=== PATIENT | male | born 1980 | race American Indian/Alaskan Native ===

== ENCOUNTER 2017-09-15 05:45 | Inpatient (IN) | payer OTHER ==
[2017-09-15] MEDS ORDERED: Sodium Chloride 0.9% 1,000 ML IV STA (06:21)
--- NOTE | 2017-09-15 06:30 | ED PDOC ---
HPI: Abdomen Time Seen by Provider: 09/15/17 05:49 Chief Complaint (Nursing): Abdominal Pain Chief Complaint (Provider): Abdominal Pain History Per: Patient History/Exam Limitations: no limitations Onset/Duration Of Symptoms: Days (x 1) Current Symptoms Are (Timing): Still Present Additional Complaint(s): Km is a 37 y/o male with no past medical history who presents to the ED complaining of right lower quadrant pain that started 24 hours ago. Patient states the pain was initially periumbilical and then travelled down to the RLQ. He has had 5 episodes of vomiting and says a few were red but he is not sure if it was blood. He reports that he has felt feverish at home and has had normal bowel movements. He has not taken anything for the pain. PMD: None Provided Past Medical History Reviewed: Historical Data, Nursing Documentation, Vital Signs Vital Signs: Last Vital Signs Temp 97.6 F 09/15/17 06:06 Pulse 88 09/15/17 06:06 Resp 17 09/15/17 06:06 BP 128/84 09/15/17 06:06 Pulse Ox 99 09/15/17 06:34 - Medical History PMH: No Chronic Diseases - Surgical History Surgical History: No Surg Hx - Family History Family History: States: Unknown Family Hx - Allergies Allergies/Adverse Reactions: Allergies Allergy/AdvReac Type Severity Reaction Status Date / Time No Known Allergies Allergy Verified 09/15/17 06:08 Review of Systems ROS Statement: Except As Marked, All Systems Reviewed And Found Negative Constitutional: Positive for: Fever Gastrointestinal: Positive for: Nausea, Vomiting (x 5), Abdominal Pain (RLQ). Negative for: Diarrhea, Constipation Physical Exam - Reviewed Nursing Documentation Reviewed: Yes Vital Signs Reviewed: Yes - Physical Exam Appears: Positive for: Non-toxic, No Acute Distress Head Exam: Positive for: ATRAUMATIC, NORMAL INSPECTION, NORMOCEPHALIC Skin: Positive for: Normal Color, Warm, Dry Eye Exam: Positive for: EOMI, Normal appearance, PERRL ENT: Positive for: Normal ENT Inspection Neck: Positive for: Normal, Painless ROM, Supple Cardiovascular/Chest: Positive for: Regular Rate, Rhythm. Negative for: Murmur Respiratory: Positive for: Normal Breath Sounds. Negative for: Respiratory Distress Gastrointestinal/Abdominal: Positive for: Tenderness (RLQ to palpitation), Guarding (voluntary) Back: Positive for: Normal Inspection Extremity: Positive for: Normal ROM. Negative for: Pedal Edema, Deformity Neurologic/Psych: Positive for: Alert, Oriented - ECG O2 Sat by Pulse Oximetry: 99 (RA) Pulse Ox Interpretation: Normal Medical Decision Making Medical Decision Making: Time: 6:20 Initial Impression: Appendicitis Initial Plan: --CT Abdomen & Pelvis with IV Contrast --CMP --Lactic Acid --CBC --Toradol --Zofran --Blood Culture --Urinalysis Time: 7:00 --Patient signed out by me to Dr. Rolf Ernandez III, MD pending imaging and lab results. Scribe Attestation: Documented by Wiley Riley, acting as a scribe for Dr. Zach Jama MD Provider Scribe Attestation: All medical record entries made by the Scribe were at my direction and personally dictated by me. I have reviewed the chart and agree that the record accurately reflects my personal performance of the history, physical exam, medical decision making, and the department course for this patient. I have also personally directed, reviewed, and agree with the discharge instructions and disposition. Disposition - Clinical Impression Clinical Impression: Abdominal pain - Patient ED Disposition Is Patient to be Admitted: Transfer of Care - Disposition Disposition: Transfer of Care Disposition Time: 07:00 Condition: STABLE Forms: [facility] (Kosovan) Patient Signed Over To: Rolf Ernandez III Handoff Comments: pending full workup
[2017-09-15 06:50] LABS: BASO % 0.3 % (0.0-2.0); HEMOGLOBIN 14.7 g/dL (12.0-18.0); LYMPH # 0.7 K/uL (1.0-4.3); LYMPH % 5.1 % (20.0-40.0); MEAN CORPUSCULAR HEMOGLOBIN 24.2 pg (27.0-31.0); MEAN CORPUSCULAR HGB CONC 31.8 g/dL (33.0-37.0); MEAN PLATELET VOLUME 7.8 fl (7.2-11.7); MONO # 1.3 K/uL (0.0-0.8); MONO % 9.8 % (0.0-10.0); NEUT # 11.6 K/uL (1.8-7.0); NEUT % 84.8 % (50.0-75.0); NRBC % 0.1 % (0.0-0.0); PLATELET COUNT 182 K/uL (130-400); RBC 6.06 Mil/uL (4.40-5.90); RED CELL DISTRIBUTION WIDTH 15.2 % (11.5-14.5); WHITE BLOOD COUNT 13.7 K/uL (4.8-10.8)
[2017-09-15 06:58] LABS: ALB/GLOB RATIO 1.3 (1.0-2.1); ALBUMIN 4.5 g/dL (3.5-5.0); ALT/SGPT 37 U/L (21-72); AST/SGOT 25 U/L (17-59); BLOOD UREA NITROGEN 17 mg/dl (9-20); CALCIUM 9.3 mg/dL (8.4-10.2); GFR AFRICAN-AMERICAN > 60; GFR NON-AFRICAN AMERICAN > 60
--- NOTE | 2017-09-15 07:14 | ED PDOC ---
- Laboratory Results Result Diagrams: 09/16/17 05:30 09/16/17 05:30 - ECG O2 Sat by Pulse Oximetry: 99 (RA) Medical Decision Making Medical Decision Making: recd 7am endorsement pending CT abd pelv r/o appendicitis Labs reviewed, mildly elevated WBC CT revealed evidence of appendicitis with possible perforation D/w hospitalist, surgery resident and attending surgeon Dr Mccain for consult Zosyn initiated Admit med surg given stable vitals Disposition Counseled Patient/Family Regarding: Studies Performed, Diagnosis, Need For Followup - Clinical Impression Clinical Impression: Abdominal pain, Appendicitis with perforation - POA Present On Arrival: None - Disposition Disposition: Admitted as In-Patient Disposition Time: 09:00 Condition: STABLE
[2017-09-15] MEDS ORDERED: Sodium Chloride 0.9% 50 ML IV ONE (07:28)
[2017-09-15] MEDS ORDERED: Iohexol 300 100 ML IJ ONE (07:28)
[2017-09-15] MEDS ORDERED: Piperacillin/Tazobact 4.5 GM in Sodium Chloride 0.9% 100 ML IVPB STA (09:26)
--- NOTE | 2017-09-15 09:38 | CT ---
PROCEDURE: CT abdomen pelvis dated 09/15/2017 . HISTORY: Right lower quadrant pain abdomen COMPARISON: None. TECHNIQUE: Contiguous axial images of the and pelvis of performed following intravenous injection of approximately 95 cc Omnipaque 300 contrast material. Additional 2 dimensional sagittal and coronal reformats generated. Radiation dose: Total exam DLP = 548.78 mGy-cm. This CT exam was performed using one or more of the following dose reduction techniques: Automated exposure control, adjustment of the mA and/or kV according to patient size, and/or use of iterative reconstruction technique. FINDINGS: LOWER THORAX: Lung bases are clear without focal consolidation or effusion. No evidence of basilar pneumothorax. There is small hiatal hernia. Heart size is borderline/mildly enlarged. LIVER: Liver is enlarged measuring 21 cm in CC dimension. Mild diffuse fatty hepatic infiltration. No obvious hepatic mass collection or calcification. Portal and splenic veins are opacified. GALLBLADDER AND BILE DUCTS: Gallbladder is physiologically distended. No evidence of intraluminal gallbladder calculi. PANCREAS: The pancreas appears grossly unremarkable without masses collections or calcifications. SPLEEN: Spleen exhibits normal size and attenuation pattern without mass collection or calcification. ADRENALS: No adrenal lesions. KIDNEYS AND URETERS: Kidneys demonstrate symmetric nephrograms. No evidence of nephrolithiasis or hydronephrosis. BLADDER: Urinary bladder is physiologically distended. No evidence intraluminal urinary bladder calculi. REPRODUCTIVE: Unremarkable as visualized. APPENDIX: What is felt to represent the appendix is dilated measuring up to nearly 14 mm in greatest dimension and exhibits enhancing thick wall. There is surrounding the infiltration and fluid in the periappendiceal mesentery with mild to moderate amount of fluid in the pelvis. Findings are consistent with acute appendicitis likely ruptured given the additional findings in the mesentery. Fluid also extends superiorly for short distance adjacent to the ascending colon. . This case was discussed with Dr. Ernandez approximately 9:20 a.m. with written down and read back verification. BOWEL: Evaluation of the bowel is somewhat limited due to the lack of oral contrast material. Stomach is incompletely distended which presumably accounts thick-walled appearance. Visualized loops of small bowel exhibit normal contour and caliber. No evidence mechanical small bowel obstruction. . PERITONEUM: As above. No evidence of gross free intraperitoneal air. LYMPH NODES: Unremarkable. No enlarged lymph nodes. VASCULATURE: Unremarkable. No aortic aneurysm. BONES: No fracture or destructive lesion. OTHER FINDINGS: None. IMPRESSION: Findings most consistent with an acute appendicitis possibly ruptured given the moderate amount of adjacent free fluid and fluid extending into the pelvis as well as superiorly along the ascending colon. Findings discussed with Dr. Ernandez as detailed above. Mild hepatomegaly with mild fatty hepatic infiltration.
--- NOTE | 2017-09-15 09:55 | CP.PCM.HP ---
History of Present Illness - History of Present Illness History of Present Illness: 37 yo male with no significant PMH came in complaining of RLQ pain since 2 days ago associated with 5 episodes of vomiting with red material. He had no BM for 3 days and felt febrile, on and off, at home. Present on Admission - Present on Admission Any Indicators Present on Admission: No History of DVT/PE: No History of Uncontrolled Diabetes: No Urinary Catheter: No Decubitus Ulcer Present: No Review of Systems - Review of Systems All systems: reviewed and no additional remarkable complaints except (aside from those mentioned above, 12 point system review were negative by me) Past Patient History - Tetanus Immunizations Tetanus Immunization: Unknown - Past Medical History & Family History Past Medical History?: No Past Family History: Reviewed and not pertinent - Past Social History Smoking Status: Never Smoked Alcohol: None Drugs: Denies - PSYCHIATRIC Hx Substance Use: No Meds Allergies/Adverse Reactions: Allergies Allergy/AdvReac Type Severity Reaction Status Date / Time No Known Allergies Allergy Verified 09/15/17 06:08 Physical Exam - Constitutional Appears: No Acute Distress - Head Exam Head Exam: ATRAUMATIC - Eye Exam Eye Exam: absent: Scleral icterus - ENT Exam ENT Exam: Mucous Membranes Moist - Neck Exam Neck exam: Negative for: Meningismus - Respiratory Exam Respiratory Exam: absent: Rhonchi, Wheezes, Respiratory Distress - Cardiovascular Exam Cardiovascular Exam: REGULAR RHYTHM, +S1 - GI/Abdominal Exam GI & Abdominal Exam: Soft, Tenderness (tenderness on RLQ on palpation). absent : Guarding, Rebound - Rectal Exam Rectal Exam: Deferred - Extremities Exam Extremities exam: Negative for: calf tenderness, pedal edema - Back Exam Back exam: absent: tenderness - Neurological Exam Neurological exam: Alert, Oriented x3 - Psychiatric Exam Psychiatric exam: Normal Affect - Skin Skin Exam: Dry, Intact Results - Vital Signs Recent Vital Signs: Last Vital Signs Temp 97.6 F 09/15/17 06:06 Pulse 88 09/15/17 06:06 Resp 17 09/15/17 06:06 BP 128/84 09/15/17 06:06 Pulse Ox 99 09/15/17 07:13 - Labs Result Diagrams: 09/15/17 06:46 09/15/17 06:46 Labs: Laboratory Results - last 24 hr 09/15/17 09/15/17 09/15/17 06:46 06:46 06:46 WBC 13.7 H RBC 6.06 H Hgb 14.7 Hct 46.1 MCV 76.0 L MCH 24.2 L MCHC 31.8 L RDW 15.2 H Plt Count 182 MPV 7.8 Neut % (Auto) 84.8 H Lymph % (Auto) 5.1 L Sutton % (Auto) 9.8 Eos % (Auto) 0.0 Baso % (Auto) 0.3 Neut # (Auto) 11.6 H Lymph # (Auto) 0.7 L Sutton # (Auto) 1.3 H Eos # (Auto) 0.0 Baso # (Auto) 0.0 Sodium 140 Potassium 3.9 Chloride 99 Carbon Dioxide 28 Anion Gap 17 BUN 17 Creatinine 1.0 Est GFR ( Amer) > 60 Est GFR (Non-Af Amer) > 60 Random Glucose 133 H Lactic Acid 0.9 Calcium 9.3 Total Bilirubin 1.4 H AST 25 ALT 37 Alkaline Phosphatase 50 Total Protein 8.1 Albumin 4.5 Globulin 3.6 Albumin/Globulin Ratio 1.3 Assessment & Plan - Assessment and Plan (Free Text) Assessment: 37 yo male with no significant PMH came in complaining of RLQ pain since 2 days ago associated with 5 episodes of vomiting with red material. He had no BM for 3 days and felt febrile, on and off, at home. 1. Acute Appendicitis CT scan - as per ER physician reading was positive for appendicitis Zosyn 3.375 gm IV q 6hrs maintain NPO continue IV hydration with NSS 150cc/hr medically cleared for surgery
[2017-09-15 10:06] LABS: LYMPHOCYTE 5 % (20-50); MONOCYTE 7 % (0-10); NEUTROPHIL 88 % (42-75); PLATELET ESTIMATE NORMAL (NORMAL); TOTAL CELLS COUNTED 100
[2017-09-15 10:07] LABS: ANISOCYTOSIS SLIGHT
[2017-09-15] MEDS ORDERED: Sodium Chloride 0.9% 1,000 ML IV SCH (10:15)
--- NOTE | 2017-09-15 10:58 | CP.PCM.CON ---
Addendum entered and electronically signed by Cherri Best DO 09/15/17 18:41: To start anti-coagulation tomorrow after CBC if ok. Original Note: <Jaylin Armstrong - Last Filed: 09/15/17 11:32> History of Present Illness - History of Present Illness History of Present Illness: General Surgery Dr. Gaytan 37 y/o M w/ no significant PMHx presents to the ED c/o abd pain. Pt admits to chronic intermittent abd pain since moving to the [facility] 3yrs ago but the pain has never been this severe. Pt states the pain began yesterday rajeev-umbilically. Pain worsened throughout the evening w/ localization to the RLQ. Pt reports radiation of pain the his R low back. Pain made worse by palpation and movement. Pain only improved by medication provided by ED. Pt admits to concurrent N/V [id number] NBNB as well as subjective F/C. Pt reports chronic constipation. Pt denies dysuria, hesitancy, or frequency. PMHx: hemorrhoids Meds: denies ALL: beans PSHx: denies SHx: denies tobacco, EtOH, drug use FHx: noncontributory Review of Systems - Review of Systems All systems: reviewed and no additional remarkable complaints except (see HPI) Past Patient History - Tetanus Immunizations Tetanus Immunization: Unknown - Past Medical History & Family History Past Medical History?: No Past Family History: Reviewed and not pertinent - Past Social History Smoking Status: Never Smoked Alcohol: None Drugs: Denies - PSYCHIATRIC Hx Substance Use: No Meds Allergies/Adverse Reactions: Allergies Allergy/AdvReac Type Severity Reaction Status Date / Time No Known Allergies Allergy Verified 09/15/17 06:08 - Medications Medications: Current Medications Sodium Chloride (Sodium Chloride 0.9%) 1,000 mls @ 150 mls/hr IV .Q6H40M [facility]NA Last Admin: 09/15/17 10:28 Dose: 150 mls/hr Piperacillin Sod/Tazobactam (Sod 3.375 gm/ Sodium Chloride) 100 mls @ 100 mls/ hr IVPB Q6 [facility] PRN Reason: Protocol Physical Exam - Constitutional Appears: Non-toxic, No Acute Distress - Head Exam Head Exam: NORMAL INSPECTION - Eye Exam Eye Exam: Normal appearance - ENT Exam ENT Exam: Mucous Membranes Moist - Respiratory Exam Respiratory Exam: Accessory Muscle Use, NORMAL BREATHING PATTERN. absent: Respiratory Distress - Cardiovascular Exam Cardiovascular Exam: absent: Bradycardia, Tachycardia - GI/Abdominal Exam GI & Abdominal Exam: Guarding (voluntary), Rebound, Soft, Tenderness. absent: Distended - Expanded GI/Abdominal Exam Expanded Expanded GI & Abdominal Exam: Obturator Sign, Rovsing's Sign, McBurney's Point Tenderness - Extremities Exam Extremities exam: Positive for: normal inspection - Neurological Exam Neurological exam: Alert, Oriented x3 - Psychiatric Exam Psychiatric exam: Normal Affect, Normal Mood - Skin Skin Exam: Dry, Intact, Normal Color, Warm Results - Vital Signs Recent Vital Signs: Last Vital Signs Temp 99.1 F 09/15/17 10:14 Pulse 102 H 09/15/17 10:14 Resp 19 09/15/17 10:14 BP 133/89 09/15/17 10:14 Pulse Ox 99 09/15/17 10:14 - Labs Result Diagrams: 09/15/17 06:46 09/15/17 06:46 Labs: Laboratory Results - last 24 hr 09/15/17 09/15/17 09/15/17 06:46 06:46 06:46 WBC 13.7 H RBC 6.06 H Hgb 14.7 Hct 46.1 MCV 76.0 L MCH 24.2 L MCHC 31.8 L RDW 15.2 H Plt Count 182 MPV 7.8 Neut % (Auto) 84.8 H Lymph % (Auto) 5.1 L Nash % (Auto) 9.8 Eos % (Auto) 0.0 Baso % (Auto) 0.3 Neut # (Auto) 11.6 H Lymph # (Auto) 0.7 L Nash # (Auto) 1.3 H Eos # (Auto) 0.0 Baso # (Auto) 0.0 Neutrophils % (Manual) 88 H Lymphocytes % (Manual) 5 L Monocytes % (Manual) 7 Platelet Estimate Normal Anisocytosis (manual) Slight Sodium 140 Potassium 3.9 Chloride 99 Carbon Dioxide 28 Anion Gap 17 BUN 17 Creatinine 1.0 Est GFR ( Amer) > 60 Est GFR (Non-Af Amer) > 60 Random Glucose 133 H Lactic Acid 0.9 Calcium 9.3 Total Bilirubin 1.4 H AST 25 ALT 37 Alkaline Phosphatase 50 Total Protein 8.1 Albumin 4.5 Globulin 3.6 Albumin/Globulin Ratio 1.3 - Imaging and Cardiology CT scan - abdomen Status: Image reviewed by me, Report reviewed by me Assessment & Plan - Assessment and Plan (Free Text) Assessment: 37 y/o M w/ abd pain 2/2 acute appendicitis - NPO, IVF - IV Abx - pain management - anti-emetic - monitor vitals - consent obtained and in chart for laparoscopic appendectomy - Pt scheduled for the OR this afternoon Pt discussed w/ Dr. Lucila Armstrong DO PGY2 <Marc Gaytan - Last Filed: 09/17/17 10:25> Meds - Medications Medications: Current Medications Acetaminophen (Tylenol 650 Mg Supp) 650 mg WI Q4 PRN PRN Reason: fever >100.4 Last Admin: 09/17/17 05:48 Dose: 650 mg Enoxaparin Sodium (Lovenox) 40 mg SC DAILY BREANNA PRN Reason: Protocol Last Admin: 09/17/17 08:33 Dose: 40 mg Hydromorphone HCl (Dilaudid) 0.5 mg IVP Q3H PRN PRN Reason: Pain, moderate (4-7) Hydromorphone HCl (Dilaudid) 1 mg IVP Q3 PRN PRN Reason: Pain, severe (8-10) Last Admin: 09/16/17 13:54 Dose: 1 mg Metronidazole (Flagyl 500mg/100ml Ns) 100 mls @ 100 mls/hr IVPB Q8@0300,1100, 1900 BREANNA PRN Reason: Protocol Last Admin: 09/17/17 02:17 Dose: 100 mls/hr Piperacillin Sod/Tazobactam (Sod 3.375 gm/ Sodium Chloride) 100 mls @ 100 mls/ hr IVPB Q6 [facility] PRN Reason: Protocol Last Admin: 09/17/17 09:35 Dose: 100 mls/hr Potassium Chloride 20 meq/ (Lactated Ringer's) 1,010 mls @ 150 mls/hr IV .Q6H44M [facility] Last Admin: 09/17/17 05:27 Dose: 150 mls/hr Ondansetron HCl (Zofran Inj) 4 mg IVP Q4 PRN PRN Reason: Nausea/Vomiting Oxycodone/Acetaminophen (Percocet 5/325 Mg Tab) 2 tab PO Q4 PRN PRN Reason: Pain, moderate (4-7) Stop: 09/20/17 06:48 Pantoprazole Sodium (Protonix Inj) 40 mg IVP DAILY BREANNA Last Admin: 09/17/17 08:32 Dose: 40 mg Results - Vital Signs Recent Vital Signs: Last Vital Signs Temp 99.8 F H 09/17/17 09:00 Pulse 94 H 09/17/17 09:00 Resp 18 09/17/17 09:00 BP 157/58 H 09/17/17 09:00 Pulse Ox 97 09/17/17 09:00 - Labs Result Diagrams: 09/17/17 06:15 09/17/17 06:15 Labs: Laboratory Results - last 24 hr 09/16/17 09/17/17 09/17/17 12:47 06:15 06:15 WBC 10.9 H RBC 4.74 Hgb 11.4 L Hct 36.2 MCV 76.2 L MCH 24.1 L MCHC 31.6 L RDW 14.9 H Plt Count 179 Sodium 141 Potassium 3.4 L Chloride 105 Carbon Dioxide 29 Anion Gap 10 BUN 12 Creatinine 0.9 Est GFR ( Amer) > 60 Est GFR (Non-Af Amer) > 60 Random Glucose 92 Calcium 7.8 L Phosphorus 2.5 Magnesium 1.7 Attending/Attestation - Attestation I have personally seen and examined this patient.: Yes I have fully participated in the care of the patient.: Yes I have reviewed all pertinent clinical information: Yes Notes (Text): Pt was seen and examined at bedside Agree with above note and assessment Pt with RLQ pain and tenderness Labs reviewed CT scan A/P suggestive of Acute Appendicitis with pelvic colleciton possible perforation Ass: Acute Appendicitis with Leucocytosis Plan: OR for Lap Appendectomy possible Open Consent NPO, IVF IV antibiotics Plan d.w pt in detail Risk and benefit explained in detail.
[2017-09-15] MEDS ORDERED: Bupivacaine 0.5% Inj(30mL) ONE (14:45)
[2017-09-15] MEDS ORDERED: Lidocaine 1% Inj (20ml) ONE (14:45)
[2017-09-15] MEDS ORDERED: Lidocaine 2% MPF (5 ml) Inj ONE (15:28)
[2017-09-15] MEDS ORDERED: Propofol 10 mg/ml Inj (20 ML) ONE (15:28)
[2017-09-15] MEDS ORDERED: Succinylcholine 200 mg/10 ml Inj IV ONE (15:31)
[2017-09-15] MEDS ORDERED: Lidocaine 2% Jelly (5 ml) TOP ONE (15:35)
[2017-09-15] MEDS ORDERED: Lactated Ringer's 1,000 ML IV ONE ×5 (15:52→20:00)
[2017-09-15] MEDS ORDERED: Midazolam 2 MG/2 ML VIAL ONE (15:55)
[2017-09-15] MEDS ORDERED: Piperacillin/Tazobact 3.375 GM in Sodium Chloride 0.9% 100 ML IVPB SCH (16:00)
[2017-09-15] MEDS ORDERED: Phenylephrine 10 mg/ml Inj ONE (16:08)
[2017-09-15] MEDS ORDERED: Rocuronium 10 mg/ml (5 ml) ONE (16:12)
[2017-09-15] MEDS ORDERED: Dexamethasone 4 mg/1 ml ONE (16:12)
[2017-09-15] MEDS ORDERED: Lidocaine 1% Inj (20ml) IJ ONE (16:15)
[2017-09-15] MEDS ORDERED: Piperacillin/Tazobact 3.375 gm Inj IVPB ONE (16:20)
[2017-09-15] MEDS ORDERED: metroNIDAZOLE 500mg/100ml NS 100 ML IVPB SCH (17:00)
[2017-09-15] MEDS ORDERED: Cellulose Hemostat 2X3 Sheet TP ONE (17:49)
--- NOTE | 2017-09-15 18:42 | PCM.SURG1 ---
Surgeon's Initial Post Op Note - Surgeon's Notes Surgeon: Dr. Gaytan Cleaning Professional: Cherri Best PGY-1 Type of Anesthesia: General Endo Pre-Operative Diagnosis: Appendicitis Operative Findings: See op report Post-Operative Diagnosis: Ruptured appendicitis Operation Performed: Laparoscopic appendectomy with enterolysis Specimen/Specimens Removed: Appendix Estimated Blood Loss: EBL {In ML}: 100 Blood Products Given: N/A Drains Used: Frank Post-Op Condition: Fair Date of Surgery/Procedure: 09/15/17 Time of Surgery/Procedure: 18:41
[2017-09-15] MEDS ORDERED: metroNIDAZOLE 500mg/100ml NS IVPB ONE (19:10)
[2017-09-15] MEDS: Piperacillin/Tazobact 3.375 GM in Sodium Chloride 0.9% 50 ML IVPB SCH (21:54)
[2017-09-16] MEDS: Lactated Ringer's 1,000 ML IV SCH ×3 (00:27→10:29)
[2017-09-16] MEDS: metroNIDAZOLE 500mg/100ml NS 100 ML IVPB SCH ×3 (02:17→18:23)
[2017-09-16] MEDS: Piperacillin/Tazobact 3.375 GM in Sodium Chloride 0.9% 50 ML IVPB SCH ×3 (04:34→10:39)
[2017-09-16 07:11] LABS: BASO % 0.1 % (0.0-2.0); HEMOGLOBIN 11.8 g/dL (12.0-18.0); LYMPH % 8.7 % (20.0-40.0); MEAN CORPUSCULAR HEMOGLOBIN 24.2 pg (27.0-31.0); MEAN CORPUSCULAR HGB CONC 32.3 g/dL (33.0-37.0); MEAN PLATELET VOLUME 7.9 fl (7.2-11.7); MONO # 1.3 K/uL (0.0-0.8); MONO % 11.7 % (0.0-10.0); NEUT # 9.1 K/uL (1.8-7.0); NEUT % 79.5 % (50.0-75.0); RBC 4.86 Mil/uL (4.40-5.90); WHITE BLOOD COUNT 11.4 K/uL (4.8-10.8)
[2017-09-16 07:23] LABS: BLOOD UREA NITROGEN 15 mg/dl (9-20); CALCIUM 7.6 mg/dL (8.4-10.2); GFR AFRICAN-AMERICAN > 60; GFR NON-AFRICAN AMERICAN > 60
--- NOTE | 2017-09-16 08:11 | CP.PCM.PN ---
Subjective - Date & Time of Evaluation Date of Evaluation: 09/16/17 Time of Evaluation: 11:00 - Subjective Subjective: Patient seen and examined bedside. Feeling well. With Tmax 102 last 12 hours. Pain is controlled.Hemodynamically stable. Not passing any flatus, but having burps With hypoactive bowel sounds ZARIA drain to Lower abdomen with 90 ml of serosanguinous output last night and 40 ml this AM . I/O 6050/830 WBC 11K Hgb 11 lactic acid 0.9 Objective - Vital Signs/Intake and Output Vital Signs (last 24 hours): Temp Pulse Resp BP Pulse Ox 100.8 F H 88 20 113/50 L 97 09/16/17 05:00 09/16/17 05:00 09/16/17 00:58 09/16/17 05:00 09/16/17 05:00 Intake and Output: 09/16/17 09/16/17 06:59 18:59 Intake Total 1750 Output Total 775 Balance 975 - Medications Medications: Current Medications Hydromorphone HCl (Dilaudid) 0.5 mg IVP Q3H PRN PRN Reason: Pain, moderate (4-7) Hydromorphone HCl (Dilaudid) 1 mg IVP Q3 PRN PRN Reason: Pain, severe (8-10) Piperacillin Sod/Tazobactam (Sod 3.375 gm/ Sodium Chloride) 50 mls @ 50 mls/hr IVPB Q6 [facility] PRN Reason: Protocol Last Admin: 09/16/17 04:34 Dose: 50 mls/hr Lactated Ringer's (Lactated Ringer's) 1,000 mls @ 250 mls/hr IV .Q4H [facility] Last Admin: 09/16/17 06:59 Dose: 250 mls/hr Metronidazole (Flagyl 500mg/100ml Ns) 100 mls @ 100 mls/hr IVPB Q8@0300,1100, 1900 [facility] PRN Reason: Protocol Last Admin: 09/16/17 02:17 Dose: 100 mls/hr Ondansetron HCl (Zofran Inj) 4 mg IVP Q4 PRN PRN Reason: Nausea/Vomiting Pantoprazole Sodium (Protonix Inj) 40 mg IVP DAILY [facility] - Labs Labs: 09/16/17 05:30 09/16/17 05:30 - Constitutional Appears: Non-toxic, No Acute Distress - Head Exam Head Exam: ATRAUMATIC, NORMAL INSPECTION, NORMOCEPHALIC - Eye Exam Eye Exam: EOMI, Normal appearance, PERRL Pupil Exam: NORMAL ACCOMODATION - ENT Exam ENT Exam: Mucous Membranes Moist, Normal Exam - Neck Exam Neck Exam: Full ROM, Normal Inspection - Respiratory Exam Respiratory Exam: Clear to Ausculation Bilateral, NORMAL BREATHING PATTERN. absent: Rales, Rhonchi, Wheezes - Cardiovascular Exam Cardiovascular Exam: REGULAR RHYTHM, RRR, +S1, +S2. absent: JVD - GI/Abdominal Exam GI & Abdominal Exam: Hypoactive Bowel Sounds. absent: Guarding, Tenderness, Rebound Additional comments: Zaria drain to lower abdomen - Rectal Exam Rectal Exam: Deferred - Extremities Exam Extremities Exam: Full ROM, Normal Capillary Refill, Normal Inspection. absent : Calf Tenderness, Pedal Edema - Back Exam Back Exam: NORMAL INSPECTION - Neurological Exam Neurological Exam: Alert, Awake, CN II-XII Intact, Oriented x3 - Psychiatric Exam Psychiatric exam: Normal Affect, Normal Mood - Skin Skin Exam: Dry, Intact, Normal Color, Warm Assessment and Plan - Assessment and Plan (Free Text) Assessment: 37 yo male with no significant PMH came in complaining of RLQ pain since 2 days ago associated with 5 episodes of vomiting with red material. He had no BM for 3 days and felt febrile, on and off, at home. Ct abdomen showed perforated appendicitis. Patient was started on IV Zosyn and Flagyl, surgery was consulted and taken to OR for laparascopic appendectomy . 1. Acute perforated Appendicitis -- s/p laparascopic appendectomy day 1 pain is controlled but still not passing flatus, burping ZARIA drain with 40 ml serosanguinous output this Am. Keep ZARIA drain in place and monitor output BS hypoactive will d/c Kelsey and start ambulation continue IVF but decrease rate to 150 ml /hr add KCl to IVF 20 MEQ Continue pain medication PRN Check Mg and phosp Continue Zosyn and Flagyl IV Incentive spirometry Monitor strict I/O 2. Hypo[place] replace with IVF 3.DVt prophylaxis SCD lovenox
[2017-09-16] MEDS ORDERED: Potassium CL 10mEq/100ml 100 ML IVPB SCH (10:00)
[2017-09-16] MEDS ORDERED: Potassium CL 10 MEQ/50 ML 50 ML IVPB SCH (11:00)
[2017-09-16] MEDS ORDERED: Potassium Chloride 20 MEQ in Lactated Ringer's 1,000 ML IV SCH (12:27)
--- NOTE | 2017-09-16 12:59 | CP.PCM.PN ---
<NathanielJaylin - Last Filed: 09/16/17 12:56> Subjective - Date & Time of Evaluation Date of Evaluation: 09/16/17 Time of Evaluation: 07:25 - Subjective Subjective: General Surgery Dr. Gaytan Pt S&E @bedside. Pt underwent lap appy yesterday. Surgery was difficult, however pt tolerated the procedure well w/ no complications. Pt denies abd pain , N/V, F/C. (-)BM/Flatus. NPO Objective - Vital Signs/Intake and Output Vital Signs (last 24 hours): Temp Pulse Resp BP Pulse Ox 99.2 F 92 H 18 123/69 99 09/16/17 11:24 09/16/17 08:38 09/16/17 08:38 09/16/17 08:38 09/16/17 09:23 Intake and Output: 09/16/17 09/16/17 06:59 18:59 Intake Total 1750 0 Output Total 775 40 Balance 975 -40 - Medications Medications: Current Medications Acetaminophen (Tylenol 650 Mg Supp) 650 mg [place] Q4 PRN PRN Reason: fever >100.4 Last Admin: 09/16/17 10:24 Dose: 650 mg Hydromorphone HCl (Dilaudid) 0.5 mg IVP Q3H PRN PRN Reason: Pain, moderate (4-7) Hydromorphone HCl (Dilaudid) 1 mg IVP Q3 PRN PRN Reason: Pain, severe (8-10) Metronidazole (Flagyl 500mg/100ml Ns) 100 mls @ 100 mls/hr IVPB Q8@0300,1100, 1900 [facility] PRN Reason: Protocol Last Admin: 09/16/17 10:19 Dose: 100 mls/hr Piperacillin Sod/Tazobactam (Sod 3.375 gm/ Sodium Chloride) 100 mls @ 100 mls/ hr IVPB Q6 [facility] PRN Reason: Protocol Potassium Chloride 20 meq/ (Lactated Ringer's) 1,010 mls @ 250 mls/hr IV .Q4H3M [facility] Ondansetron HCl (Zofran Inj) 4 mg IVP Q4 PRN PRN Reason: Nausea/Vomiting Pantoprazole Sodium (Protonix Inj) 40 mg IVP DAILY [facility] Last Admin: 09/16/17 11:17 Dose: 40 mg - Labs Labs: 02/03/18 05:30 09/16/17 05:30 - Constitutional Appears: Non-toxic, No Acute Distress - Head Exam Head Exam: NORMAL INSPECTION - Eye Exam Eye Exam: Normal appearance - ENT Exam ENT Exam: Mucous Membranes Moist - Respiratory Exam Respiratory Exam: NORMAL BREATHING PATTERN. absent: Accessory Muscle Use, Respiratory Distress - Cardiovascular Exam Cardiovascular Exam: absent: Bradycardia, Tachycardia - GI/Abdominal Exam GI & Abdominal Exam: Distended (moderate), Firm, Guarding (voluntary), Tenderness (minimal TTP (R) abd). absent: Rebound Additional comments: dressings c/d/i janki drain present - Extremities Exam Extremities Exam: Normal Inspection - Neurological Exam Neurological Exam: Alert, Awake, Oriented x3 - Psychiatric Exam Psychiatric exam: Normal Affect, Normal Mood - Skin Skin Exam: Dry, Normal Color, Warm Assessment and Plan - Assessment and Plan (Free Text) Assessment: 37 y/o M w/ perforated appendicitis s/p Lap appendectomy - monitor vitals - cont IV Abx - cont pain management - monitor drain output - await bowel function - encourage OOB to chair/Amb/IS use Pt discussed w/ Dr. Lucila Armstrong DO PGY2 <Marc Gaytan - Last Filed: 09/17/17 10:27> Objective - Vital Signs/Intake and Output Vital Signs (last 24 hours): Temp Pulse Resp BP Pulse Ox 99.8 F H 94 H 18 157/58 H 97 09/17/17 09:00 09/17/17 09:00 09/17/17 09:00 09/17/17 09:00 09/17/17 09:00 Intake and Output: 09/17/17 09/17/17 06:59 18:59 Intake Total 1650 Output Total 30 Balance 1620 - Medications Medications: Current Medications Acetaminophen (Tylenol 650 Mg Supp) 650 mg [place] Q4 PRN PRN Reason: fever >100.4 Last Admin: 09/17/17 05:48 Dose: 650 mg Enoxaparin Sodium (Lovenox) 40 mg SC DAILY [facility] PRN Reason: Protocol Last Admin: 09/17/17 08:33 Dose: 40 mg Hydromorphone HCl (Dilaudid) 0.5 mg IVP Q3H PRN PRN Reason: Pain, moderate (4-7) Hydromorphone HCl (Dilaudid) 1 mg IVP Q3 PRN PRN Reason: Pain, severe (8-10) Last Admin: 09/16/17 13:54 Dose: 1 mg Metronidazole (Flagyl 500mg/100ml Ns) 100 mls @ 100 mls/hr IVPB Q8@0300,1100, 1900 [facility] PRN Reason: Protocol Last Admin: 09/17/17 02:17 Dose: 100 mls/hr Piperacillin Sod/Tazobactam (Sod 3.375 gm/ Sodium Chloride) 100 mls @ 100 mls/ hr IVPB Q6 [facility] PRN Reason: Protocol Last Admin: 09/17/17 09:35 Dose: 100 mls/hr Potassium Chloride 20 meq/ (Lactated Ringer's) 1,010 mls @ 150 mls/hr IV .Q6H44M [facility] Last Admin: 09/17/17 05:27 Dose: 150 mls/hr Ondansetron HCl (Zofran Inj) 4 mg IVP Q4 PRN PRN Reason: Nausea/Vomiting Oxycodone/Acetaminophen (Percocet 5/325 Mg Tab) 2 tab PO Q4 PRN PRN Reason: Pain, moderate (4-7) Stop: 09/20/17 06:48 Pantoprazole Sodium (Protonix Inj) 40 mg IVP DAILY [facility] Last Admin: 09/17/17 08:32 Dose: 40 mg - Labs Labs: 09/17/17 06:15 09/17/17 06:15 Attending/Attestation - Attestation I have personally seen and examined this patient.: Yes I have fully participated in the care of the patient.: Yes I have reviewed all pertinent clinical information, including history, physical exam and plan: Yes Notes (Text): Pt was seen and examined at bedside Agree with above note and assessment Pt is improving clinically Clear liquid diet OOB to walk DVT prophylaxis IV antibiotics Plan d.w pt in detail
[2017-09-16 13:07] LABS: MAGNESIUM 1.7 MG/DL (1.6-2.3)
[2017-09-16] MEDS: Potassium Chloride 20 MEQ in Lactated Ringer's 1,000 ML IV SCH (17:11)
[2017-09-16] MEDS: Piperacillin/Tazobact 3.375 GM in Sodium Chloride 0.9% 100 ML IVPB SCH ×2 (17:13→21:58)
[2017-09-17] MEDS: metroNIDAZOLE 500mg/100ml NS 100 ML IVPB SCH ×3 (02:17→18:05)
[2017-09-17] MEDS: Piperacillin/Tazobact 3.375 GM in Sodium Chloride 0.9% 100 ML IVPB SCH ×2 (03:10→09:35)
--- NOTE | 2017-09-17 03:50 | OP ---
PROCEDURE DATE: 09/15/2017 PREOPERATIVE DIAGNOSIS: Acute appendicitis with leukocytosis. POSTOPERATIVE DIAGNOSES: 1. Acute phlegmonous perforated appendicitis with abscess. 2. Periappendicular and pelvic abscess. 3. Extensive postinfectious and postinflammatory adhesions. PROCEDURES DONE: 1. Laparoscopic appendectomy. 2. Laparoscopic drainage of pelvic appendicular and periappendicular abscess. 3. Laparoscopic extensive lysis of adhesions. SURGEON: Marc Gaytan MD DISTRICT MEDICAL EXAMINER: Cherri Best, PGY-1 resident. TYPE OF ANESTHESIA: General endotracheal tube anesthesia. ESTIMATED BLOOD LOSS: Around 100 mL. DRAIN: A 19-Indonesian Frank drain was placed in the pelvis and in the right lower quadrant. COMPLICATIONS: None. INTRAOPERATIVE FINDINGS: The patient had phlegmonous perforated appendicitis with appendicular abscess and periappendicular as well as pelvic abscess as well as extensive postinfectious and postinflammatory adhesion of the right lower quadrant and there was a large mass containing ileum, cecum, right colon as well as appendix and extensive lysis of adhesion was done. DESCRIPTION OF PROCEDURE: On intraoperative step, this is a 37-year-old male who was diagnosed with acute appendicitis with leukocytosis and the patient was consented for laparoscopic appendectomy, possible open, brought to the OR, and placed supine on operating room table. After induction of the anesthesia, the abdomen was prepped and draped in the usual sterile fashion. A Kelsey catheter and NG tube was placed in the base and supraumbilical transverse incision was made. After incising skin and subcutaneous tissue, the fascia was incised in the line of incision. Marcial port was placed. Pneumo was created. The 12-mm port was placed in the left lower quadrant and 5-mm port was placed in suprapubic region. The grasper and dissector were introduced. The patient was found to have extensive omental adhesion as well as phlegmonous mass of the cecum, ileum, and the omentum and extensive lysis of adhesion was done. The pelvic abscess was drained. First, the right colon was completely mobilized and appendix appeared to be in the retrocecal area and it was perforated with large amount of abscess was drained from the retroperitoneum and now the tip of the appendix was identified. An extra 5-mm port was placed in the right upper quadrant and mesoappendix was resected. The base of the appendix was resected with the LAMONT and the appendix was taken out to the umbilical port site and sent off the table for the pathology. There was a proper hemostasis was achieved. The terminal ileum and ileocecal junction as well as cecum was examined thoroughly for any injury and all the fluid was suctioned out. The perihepatic area as well as right upper, right lower quadrant, and pelvic area was suctioned and irrigated and all the fluid was suction out. The 19-Indonesian Frank drain was placed in the pelvic and the right lower quadrant and all the ports were taken out under vision. Pneumo was deflated. The umbilical port site was closed in 2 layers, the fascia with 0 Vicryl interrupted sutures, skin with 4-0 Monocryl and all the port sites were closed in two layers, subucutaneous with 2-0 Vicryl, skin with 4-0 Monocryl, and dry sterile dressing was applied. The patient tolerated the procedure well. Count of the instrument and gauze was correct. There was no apparent complication. The patient was extubated in the OR and sent to the Postanesthesia Care Unit in stable condition. Marc Gaytan MD JASMINA
[2017-09-17] MEDS: Potassium Chloride 20 MEQ in Lactated Ringer's 1,000 ML IV SCH ×2 (05:27→15:39)
[2017-09-17] MEDS ORDERED: Oxycodone/Acetaminophen 5/325 mg Tab PO PRN (06:47)
[2017-09-17 07:24] LABS: HEMOGLOBIN 11.4 g/dL (12.0-18.0); MEAN CELL VOLUME 76.2 fl (80.0-94.0); MEAN CORPUSCULAR HEMOGLOBIN 24.1 pg (27.0-31.0); MEAN CORPUSCULAR HGB CONC 31.6 g/dL (33.0-37.0); RBC 4.74 Mil/uL (4.40-5.90); RED CELL DISTRIBUTION WIDTH 14.9 % (11.5-14.5); WHITE BLOOD COUNT 10.9 K/uL (4.8-10.8)
[2017-09-17 07:29] LABS: BLOOD UREA NITROGEN 12 mg/dl (9-20); CALCIUM 7.8 mg/dL (8.4-10.2); GFR AFRICAN-AMERICAN > 60; GFR NON-AFRICAN AMERICAN > 60
--- NOTE | 2017-09-17 07:42 | CP.PCM.PN ---
Subjective - Date & Time of Evaluation Date of Evaluation: 09/17/17 Time of Evaluation: 08:00 - Subjective Subjective: Patient was seen and examined bedside. Feeling better. Pain is controlled. Passing flatus today. No acute issues overnight Tmax 101.2 WBC 10.9 Objective - Vital Signs/Intake and Output Vital Signs (last 24 hours): Temp Pulse Resp BP Pulse Ox 101.2 F H 98 H 18 119/58 L 98 09/17/17 06:32 09/17/17 05:30 09/17/17 05:30 09/17/17 05:30 09/17/17 05:30 Intake and Output: 09/17/17 09/17/17 06:59 18:59 Intake Total 1650 Output Total 30 Balance 1620 - Medications Medications: Current Medications Acetaminophen (Tylenol 650 Mg Supp) 650 mg [place] Q4 PRN PRN Reason: fever >100.4 Last Admin: 09/17/17 05:48 Dose: 650 mg Enoxaparin Sodium (Lovenox) 40 mg SC DAILY [facility] PRN Reason: Protocol Hydromorphone HCl (Dilaudid) 0.5 mg IVP Q3H PRN PRN Reason: Pain, moderate (4-7) Hydromorphone HCl (Dilaudid) 1 mg IVP Q3 PRN PRN Reason: Pain, severe (8-10) Last Admin: 09/16/17 13:54 Dose: 1 mg Metronidazole (Flagyl 500mg/100ml Ns) 100 mls @ 100 mls/hr IVPB Q8@0300,1100, 1900 [facility] PRN Reason: Protocol Last Admin: 09/17/17 02:17 Dose: 100 mls/hr Piperacillin Sod/Tazobactam (Sod 3.375 gm/ Sodium Chloride) 100 mls @ 100 mls/ hr IVPB Q6 [facility] PRN Reason: Protocol Last Admin: 09/17/17 03:10 Dose: 100 mls/hr Potassium Chloride 20 meq/ (Lactated Ringer's) 1,010 mls @ 150 mls/hr IV .Q6H44M [facility] Last Admin: 09/17/17 05:27 Dose: 150 mls/hr Ondansetron HCl (Zofran Inj) 4 mg IVP Q4 PRN PRN Reason: Nausea/Vomiting Oxycodone/Acetaminophen (Percocet 5/325 Mg Tab) 2 tab PO Q4 PRN PRN Reason: Pain, moderate (4-7) Stop: 09/20/17 06:48 Pantoprazole Sodium (Protonix Inj) 40 mg IVP DAILY [facility] Last Admin: 09/16/17 11:17 Dose: 40 mg - Labs Labs: 09/17/17 06:15 09/17/17 06:15 - Constitutional Appears: Non-toxic, No Acute Distress - Head Exam Head Exam: ATRAUMATIC, NORMAL INSPECTION, NORMOCEPHALIC - Eye Exam Eye Exam: EOMI, Normal appearance, PERRL Pupil Exam: NORMAL ACCOMODATION - ENT Exam ENT Exam: Mucous Membranes Moist, Normal Exam - Neck Exam Neck Exam: Full ROM, Normal Inspection - Respiratory Exam Respiratory Exam: Clear to Ausculation Bilateral, NORMAL BREATHING PATTERN. absent: Rales, Rhonchi, Wheezes - Cardiovascular Exam Cardiovascular Exam: REGULAR RHYTHM, RRR, +S1, +S2. absent: JVD - GI/Abdominal Exam GI & Abdominal Exam: Hypoactive Bowel Sounds. absent: Guarding, Rebound - Rectal Exam Rectal Exam: Deferred - Extremities Exam Extremities Exam: Full ROM, Normal Capillary Refill, Normal Inspection. absent : Calf Tenderness, Pedal Edema - Back Exam Back Exam: NORMAL INSPECTION - Neurological Exam Neurological Exam: Alert, Awake, CN II-XII Intact, Oriented x3 - Psychiatric Exam Psychiatric exam: Normal Affect, Normal Mood - Skin Skin Exam: Dry, Intact, Normal Color, Warm Assessment and Plan - Assessment and Plan (Free Text) Assessment: 37 yo male with no significant PMH,came in complaining of RLQ pain for 2 days , associated with 5 episodes of vomiting with red material. He had no BM for 3 days and felt febrile, on and off, at home. Ct abdomen showed perforated appendicitis. Patient was started on IV Zosyn and Flagyl, surgery was consulted and taken to OR for laparascopic appendectomy . Patient today is post op day 2, feeling better, passing flatus, febrile Tmax 101.2 WBC 10.9 1. Acute perforated Appendicitis -- s/p laparascopic appendectomy day 2 pain is controlled passing flatus LUCITA drain with 110 ml serosanguinous output last 24 hours. Keep LUCITA drain in place and monitor output BS hypoactive Start liquid diet and advance if tolerated Promote ambulation continue IVF with KCL @ 150 ml /hr Continue pain medication PRN Continue Zosyn and Flagyl IV Incentive spirometry Monitor strict I/O 2. Hypoaklemia replace with IVF and KCL 3.DVt prophylaxis SCD lovenox
[2017-09-17] MEDS: Enoxaparin 40 mg Syringe SC SCH (08:33)
[2017-09-17] MEDS ORDERED: Potassium Chloride 20 mEq/15 ml LIQ UD PO ONE (09:29)
--- NOTE | 2017-09-17 14:17 | CP.PCM.CON ---
History of Present Illness - History of Present Illness History of Present Illness: 37 yo male with no significant PMH,came in complaining of RLQ pain for 2 days , associated with 5 episodes of vomiting with red material. He had no BM for 3 days and felt febrile, on and off, at home. Ct abdomen showed perforated appendicitis. Patient was started on IV Zosyn and Flagyl, surgery was consulted and taken to OR for laparascopic appendectomy . Patient today is post op day 2, feeling better, passing flatus, febrile Tmax 101.2 WBC 10.9 blood cultures + ID consulted Merrem added Review of Systems - Constitutional Constitutional: As Per HPI, Anorexia - EENT Eyes: absent: As Per HPI, Blind Spots, Blurred Vision, Change in Vision, Decreased Night Vision, Diplopia, Discharge, Dry Eye, Exophthalmos, Floaters, Irritation, Itchy Eyes, Loss of Peripheral Vision, Pain, Photophobia, Requires Corrective Lenses, Sees Flashes, Spots in Vision, Tunnel Vision, Other Visual Disturbances, Loss of Vision, Other Ears: absent: As Per HPI, Decreased Hearing, Ear Discharge, Ear Pain, Tinnitus, Abnormal Hearing, Disequilibrium, Dizziness, Other Nose/Mouth/Throat: absent: As Per HPI, Epistaxis, Nasal Congestion, Nasal Discharge, Nasal Obstruction, Nasal Trauma, Nose Pain, Post Nasal Drip, Sinus Pain, Sinus Pressure, Bleeding Gums, Change in Voice, Dental Pain, Dry Mouth, Dysphagia, Halitosis, Hoarsness, Lip Swelling, Mouth Lesions, Mouth Pain, Odynophagia, Sore Throat, Throat Swelling, Tongue Swelling, Facial Pain, Neck Pain, Neck Mass, Other - Cardiovascular Cardiovascular: absent: As Per HPI, Acrocyanosis, Chest Pain, Chest Pain at Rest , Chest Pain with Activity, Claudication, Diaphoresis, Dyspnea, Dyspnea on Exertion, Edema, Irregular Heart Rhythm, Pain Radiating to Arm/Neck/Jaw, Leg Edema, Leg Ulcers, Lightheadedness, Orthopnea, Palpitations, Paroxysmal Nocturnal Dyspnea, Pedal Edema, Radiating Pain, Rapid Heart Rate, Slow Heart Rate, Syncope, Other - Respiratory Respiratory: absent: As Per HPI, Cough, Dyspnea, Hemoptysis, Dyspnea on Exertion , Wheezing, Snoring, Stridor, Pain on Inspiration, Chest Congestion, Excessive Mucous Production, Change in Mucous Color, Pain with Coughing, Other - Gastrointestinal Gastrointestinal: As Per HPI - Genitourinary Genitourinary: absent: As Per HPI, Change in Urinary Stream, Difficulty Urinating, Dysuria, Flank Pain, Hematuria, Pyuria, Nocturia, Urinary Incontinence, Urinary Frequency, Urinary Hesitance, Urinary Urgency, Voiding Freq/Small Amts, Freq UTI, Hx Renal/Bladder Calculi, Hx /Renal Surgery, Bladder Distension, Other - Musculoskeletal Musculoskeletal: absent: As Per HPI, Abnormal Gait, Arthralgias, Atrophy, Back Pain, Deformity, Joint Swelling, Limited Range of Motion, Loss of Height, Muscle Cramps, Muscle Weakness, Myalgias, Neck Pain, Numbness, Radiating Pain into Limb, Stiffness, Tingling, Other - Integumentary Integumentary: absent: As Per HPI, Acne, Alopecia, Bleeding Lesions, Change in Hair, Change in Nails, Change in Pigmentation, Changing Lesions, Dry Skin, Erythema, Furuncle, Hirsutism, Lesions, New Lesions, Non-Healing Lesions, Photosensitivity, Pruritus, Rash, Skin Pain, Skin Ulcer, Sores, Striae, Swelling , Unusual Bruising, Wounds, Jaundice, Other - Neurological Neurological: absent: As Per HPI, Abnormal Gait, Abnormal Hearing, Abnormal Movements, Abnormal Speech, Behavioral Changes, Burning Sensations, Confusion, Convulsions, Disequilibrium, Dizziness, Numbness, Focal Weakness, Frequent Falls , Headaches, Lack of Coordination, Loss of Vision, Memory Loss, Paresthesias, Radicular Pain, Restless Legs, Sensory Deficit, Syncope, Tingling, Tremor, Vertigo, Weakness, Other Visual Disturbances, Other - Psychiatric Psychiatric: absent: As Per HPI, Abnormal Sleep Pattern, Anhedonia, Anxiety, Auditory Hallucinations, Behavioral Changes, Change in Appetite, Change in Libido, Confusion, Depression, Difficulty Concentrating, Hallucinations, Homicidal Ideation, Hopelessness, Irritability, Memory Loss, Mood Swings, Panic Attacks, Paranoia, Suicidal Ideation, Visual Hallucinations, Tactile Hallucinations, Other - Endocrine Endocrine: absent: As Per HPI, Change in Body Appearance, Change in Libido, Cold Intolorance, Deepening of Voice, Excessive Sweating, Fatigue, Flushing, Heat Intolorance, Increase in Ring/Shoe/Hat Size, Palpitations, Polydipsia, Polyphagia, Polyuria, Other - Hematologic/Lymphatic Hematologic: absent: As Per HPI, Easy Bleeding, Easy Bruising, Lymphadenopathy, Other Past Patient History - Tetanus Immunizations Tetanus Immunization: Unknown - Past Medical History & Family History Past Medical History?: No - Past Social History Smoking Status: Never Smoked - CARDIAC Hx Cardiac Disorders: No - PULMONARY Hx Respiratory Disorders: No - NEUROLOGICAL Hx Neurological Disorder: No - HEENT Hx HEENT Problems: No - RENAL Hx Chronic Kidney Disease: No - ENDOCRINE/METABOLIC Hx Endocrine Disorders: No - HEMATOLOGICAL/ONCOLOGICAL Hx Blood Disorders: No - INTEGUMENTARY Hx Dermatological Problems: No - MUSCULOSKELETAL/RHEUMATOLOGICAL Hx Musculoskeletal Disorders: No Hx Falls: No - GASTROINTESTINAL Hx Gastrointestinal Disorders: No - GENITOURINARY/GYNECOLOGICAL Hx Genitourinary Disorders: No - PSYCHIATRIC Hx Psychophysiologic Disorder: No Hx Substance Use: No - SURGICAL HISTORY Hx Surgeries: No - ANESTHESIA Hx Anesthesia: No Meds Allergies/Adverse Reactions: Allergies Allergy/AdvReac Type Severity Reaction Status Date / Time No Known Allergies Allergy Verified 09/15/17 06:08 - Medications Medications: Current Medications Acetaminophen (Tylenol 650 Mg Supp) 650 mg [place] Q4 PRN PRN Reason: fever >100.4 Last Admin: 09/17/17 05:48 Dose: 650 mg Enoxaparin Sodium (Lovenox) 40 mg SC DAILY [facility] PRN Reason: Protocol Last Admin: 09/17/17 08:33 Dose: 40 mg Hydromorphone HCl (Dilaudid) 0.5 mg IVP Q3H PRN PRN Reason: Pain, moderate (4-7) Hydromorphone HCl (Dilaudid) 1 mg IVP Q3 PRN PRN Reason: Pain, severe (8-10) Last Admin: 09/16/17 13:54 Dose: 1 mg Metronidazole (Flagyl 500mg/100ml Ns) 100 mls @ 100 mls/hr IVPB Q8@0300,1100, 1900 [facility] PRN Reason: Protocol Last Admin: 09/17/17 10:42 Dose: 100 mls/hr Piperacillin Sod/Tazobactam (Sod 3.375 gm/ Sodium Chloride) 100 mls @ 100 mls/ hr IVPB Q6 [facility] PRN Reason: Protocol Last Admin: 09/17/17 09:35 Dose: 100 mls/hr Potassium Chloride 20 meq/ (Lactated Ringer's) 1,010 mls @ 150 mls/hr IV .Q6H44M [facility] Last Admin: 09/17/17 05:27 Dose: 150 mls/hr Ondansetron HCl (Zofran Inj) 4 mg IVP Q4 PRN PRN Reason: Nausea/Vomiting Oxycodone/Acetaminophen (Percocet 5/325 Mg Tab) 2 tab PO Q4 PRN PRN Reason: Pain, moderate (4-7) Stop: 09/20/17 06:48 Pantoprazole Sodium (Protonix Inj) 40 mg IVP DAILY [facility] Last Admin: 09/17/17 08:32 Dose: 40 mg Physical Exam - Constitutional Appears: Non-toxic, Chronically Ill - Head Exam Head Exam: NORMOCEPHALIC - Eye Exam Eye Exam: PERRL. absent: Scleral icterus - ENT Exam ENT Exam: Mucous Membranes Dry, Normal External Ear Exam - Neck Exam Neck exam: Negative for: Lymphadenopathy - Respiratory Exam Respiratory Exam: Decreased Breath Sounds, Clear to Auscultation Bilateral - Cardiovascular Exam Cardiovascular Exam: REGULAR RHYTHM, +S1, +S2 - GI/Abdominal Exam GI & Abdominal Exam: Diminished Bowel Sounds, Distended, Guarding, Soft, Tenderness. absent: Rebound, Rigid Additional comments: LUCITA drain in place - Rectal Exam Rectal Exam: Deferred - Exam Exam: NORMAL INSPECTION - Extremities Exam Extremities exam: Positive for: pedal pulses present. Negative for: calf tenderness, pedal edema, tenderness - Back Exam Back exam: absent: CVA tenderness (L), CVA tenderness (R) - Neurological Exam Neurological exam: Alert, CN II-XII Intact, Oriented x3, Reflexes Normal - Psychiatric Exam Psychiatric exam: Normal Mood - Skin Skin Exam: Dry, Intact Results - Vital Signs Recent Vital Signs: Last Vital Signs Temp 99.5 F 09/17/17 13:00 Pulse 95 H 09/17/17 13:00 Resp 20 09/17/17 13:00 BP 125/77 09/17/17 13:00 Pulse Ox 99 09/17/17 13:00 - Labs Result Diagrams: 09/17/17 06:15 09/17/17 06:15 Labs: Laboratory Results - last 24 hr 09/17/17 09/17/17 06:15 06:15 WBC 10.9 H RBC 4.74 Hgb 11.4 L Hct 36.2 MCV 76.2 L MCH 24.1 L MCHC 31.6 L RDW 14.9 H Plt Count 179 Sodium 141 Potassium 3.4 L Chloride 105 Carbon Dioxide 29 Anion Gap 10 BUN 12 Creatinine 0.9 Est GFR ( Amer) > 60 Est GFR (Non-Af Amer) > 60 Random Glucose 92 Calcium 7.8 L Assessment & Plan (1) Sepsis Status: Acute (2) Abdominal pain Status: Acute (3) Appendicitis with perforation Status: Acute - Assessment and Plan (Free Text) Assessment: add Merrem cont IV antibiotics for now
--- NOTE | 2017-09-17 16:07 | CP.PCM.PN ---
<DamianDavidyrn - Last Filed: 09/17/17 16:03> Subjective - Date & Time of Evaluation Date of Evaluation: 09/17/17 Time of Evaluation: 16:03 - Subjective Subjective: Surgery Pt s&e. Continue to be febrile. Denies N/V/D/CP/SOB. No Bm. Pain controlled. Objective - Vital Signs/Intake and Output Vital Signs (last 24 hours): Temp Pulse Resp BP Pulse Ox 99.5 F 95 H 20 125/77 99 09/17/17 13:00 09/17/17 13:00 09/17/17 13:00 09/17/17 13:00 09/17/17 13:00 Intake and Output: 09/17/17 09/17/17 06:59 18:59 Intake Total 1650 480 Output Total 30 260 Balance 1620 220 - Medications Medications: Current Medications Acetaminophen (Tylenol 650 Mg Supp) 650 mg NC Q4 PRN PRN Reason: fever >100.4 Last Admin: 09/17/17 05:48 Dose: 650 mg Enoxaparin Sodium (Lovenox) 40 mg SC DAILY [facility] PRN Reason: Protocol Last Admin: 09/17/17 08:33 Dose: 40 mg Hydromorphone HCl (Dilaudid) 0.5 mg IVP Q3H PRN PRN Reason: Pain, moderate (4-7) Hydromorphone HCl (Dilaudid) 1 mg IVP Q3 PRN PRN Reason: Pain, severe (8-10) Last Admin: 09/16/17 13:54 Dose: 1 mg Metronidazole (Flagyl 500mg/100ml Ns) 100 mls @ 100 mls/hr IVPB Q8@0300,1100, 1900 [facility] PRN Reason: Protocol Last Admin: 09/17/17 10:42 Dose: 100 mls/hr Potassium Chloride 20 meq/ (Lactated Ringer's) 1,010 mls @ 150 mls/hr IV .Q6H44M [facility] Last Admin: 09/17/17 15:39 Dose: 150 mls/hr Meropenem 1 gm/ Sodium (Chloride) 100 mls @ 100 mls/hr IVPB Q8 [facility] PRN Reason: Protocol Ondansetron HCl (Zofran Inj) 4 mg IVP Q4 PRN PRN Reason: Nausea/Vomiting Oxycodone/Acetaminophen (Percocet 5/325 Mg Tab) 2 tab PO Q4 PRN PRN Reason: Pain, moderate (4-7) Stop: 09/20/17 06:48 Pantoprazole Sodium (Protonix Inj) 40 mg IVP DAILY [facility] Last Admin: 09/17/17 08:32 Dose: 40 mg - Labs Labs: 09/17/17 06:15 09/17/17 06:15 - Constitutional Appears: No Acute Distress - Head Exam Head Exam: ATRAUMATIC, NORMAL INSPECTION, NORMOCEPHALIC - Eye Exam Eye Exam: EOMI, Normal appearance, PERRL Pupil Exam: NORMAL ACCOMODATION, PERRL - ENT Exam ENT Exam: Mucous Membranes Moist, Normal Exam - Neck Exam Neck Exam: Full ROM, Normal Inspection. absent: Lymphadenopathy - Respiratory Exam Respiratory Exam: Clear to Ausculation Bilateral, NORMAL BREATHING PATTERN - Cardiovascular Exam Cardiovascular Exam: REGULAR RHYTHM, +S1, +S2. absent: Murmur - GI/Abdominal Exam GI & Abdominal Exam: Soft, Tenderness, Normal Bowel Sounds. absent: Distended Additional comments: ABd TTP. Incision C/D?I. Drain in place 30cc ss. - Extremities Exam Extremities Exam: Full ROM, Normal Capillary Refill, Normal Inspection. absent : Joint Swelling, Pedal Edema - Back Exam Back Exam: NORMAL INSPECTION - Neurological Exam Neurological Exam: Alert, Awake, CN II-XII Intact, Normal Gait, Oriented x3 - Psychiatric Exam Psychiatric exam: Normal Affect, Normal Mood - Skin Skin Exam: Dry, Intact, Normal Color, Warm Assessment and Plan - Assessment and Plan (Free Text) Assessment: POD 2 s/p lap appendectomy : Febrile Advance diet as tolerated OOB to walk DVT prophylaxis IV antibiotics per ID Plan mau Gaytan <Marc Gaytan - Last Filed: 09/24/17 18:04> Objective - Vital Signs/Intake and Output Vital Signs (last 24 hours): Temp Pulse Resp BP Pulse Ox 99.0 F 72 20 116/63 100 09/22/17 16:20 09/22/17 16:20 09/22/17 16:20 09/22/17 16:20 09/22/17 16:20 - Labs Labs: 09/22/17 07:15 09/22/17 07:15 Attending/Attestation - Attestation I have personally seen and examined this patient.: Yes I have fully participated in the care of the patient.: Yes I have reviewed all pertinent clinical information, including history, physical exam and plan: Yes Notes (Text): Pt was seen and examined at bedside Agree with above note and assessment Pt with bacteremia s/p Lap appendectomy and drainage of abscess C/W IV antibiotics Reg diet OOB Plan d.w pt in detail
[2017-09-17] MEDS: Meropenem 1 GM in Sodium Chloride 0.9% 100 ML IVPB SCH (16:29)
[2017-09-18] MEDS: Meropenem 1 GM in Sodium Chloride 0.9% 100 ML IVPB SCH ×3 (00:36→17:19)
[2017-09-18] MEDS: Potassium Chloride 20 MEQ in Lactated Ringer's 1,000 ML IV SCH ×2 (01:16→09:06)
[2017-09-18] MEDS: metroNIDAZOLE 500mg/100ml NS 100 ML IVPB SCH ×3 (03:06→18:42)
[2017-09-18] MEDS ORDERED: Oxycodone/Acetaminophen 5/325 mg Tab PO PRN ×2 (07:49→07:50)
--- NOTE | 2017-09-18 07:53 | CP.PCM.PN ---
<NathanielJaylin - Last Filed: 09/18/17 07:51> Subjective - Date & Time of Evaluation Date of Evaluation: 09/18/17 Time of Evaluation: 07:15 - Subjective Subjective: General Surgery Dr. Gaytan Pt S&E @bedside. Febrile overnight. No complaints this morning. tolerating CLD. (+) Flatus. denies N/V, D/C. Objective - Vital Signs/Intake and Output Vital Signs (last 24 hours): Temp Pulse Resp BP Pulse Ox 99.6 F 80 20 131/75 99 09/18/17 05:09 09/18/17 05:09 09/18/17 05:09 09/18/17 05:09 09/18/17 05:09 Intake and Output: 09/18/17 09/18/17 06:59 18:59 Intake Total 2590 Output Total 2605 Balance -15 - Medications Medications: Current Medications Acetaminophen (Tylenol 325mg Tab) 650 mg PO Q4 PRN PRN Reason: Fever >100.4 F Enoxaparin Sodium (Lovenox) 40 mg SC DAILY [facility] PRN Reason: Protocol Last Admin: 09/17/17 08:33 Dose: 40 mg Metronidazole (Flagyl 500mg/100ml Ns) 100 mls @ 100 mls/hr IVPB Q8@0300,1100, 1900 [facility] PRN Reason: Protocol Last Admin: 09/18/17 03:06 Dose: 100 mls/hr Potassium Chloride 20 meq/ (Lactated Ringer's) 1,010 mls @ 150 mls/hr IV .Q6H44M [facility] Last Admin: 09/18/17 01:16 Dose: 150 mls/hr Meropenem 1 gm/ Sodium (Chloride) 100 mls @ 100 mls/hr IVPB Q8 [facility] PRN Reason: Protocol Last Admin: 09/18/17 00:36 Dose: 100 mls/hr Ondansetron HCl (Zofran Inj) 4 mg IVP Q4 PRN PRN Reason: Nausea/Vomiting Oxycodone/Acetaminophen (Percocet 5/325 Mg Tab) 1 tab PO Q4 PRN PRN Reason: Pain, moderate (4-7) Stop: 09/21/17 07:50 Oxycodone/Acetaminophen (Percocet 5/325 Mg Tab) 2 tab PO Q4 PRN PRN Reason: Pain, severe (8-10) Stop: 09/20/17 06:48 Pantoprazole Sodium (Protonix Inj) 40 mg IVP DAILY [facility] Last Admin: 09/17/17 08:32 Dose: 40 mg - Labs Labs: AM Labs pending Microbiology 09/15/17 06:30 Blood Gram Stain - Final 09/15/17 06:30 Blood Blood Culture - Preliminary 09/15/17 06:30 Blood Gram Negative Jim - Constitutional Appears: Non-toxic, No Acute Distress - Head Exam Head Exam: NORMAL INSPECTION - Eye Exam Eye Exam: Normal appearance - ENT Exam ENT Exam: Mucous Membranes Moist - Respiratory Exam Respiratory Exam: NORMAL BREATHING PATTERN. absent: Accessory Muscle Use, Respiratory Distress - GI/Abdominal Exam GI & Abdominal Exam: Distended (minimal), Soft, Tenderness (minimal rajeev- incisional TTP). absent: Guarding, Rebound Additional comments: dressings c/d/i Frank in place w/ scant serous drainage - Extremities Exam Extremities Exam: Normal Inspection - Neurological Exam Neurological Exam: Alert, Awake, Oriented x3 - Psychiatric Exam Psychiatric exam: Normal Affect, Normal Mood - Skin Skin Exam: Dry, Normal Color, Warm Assessment and Plan - Assessment and Plan (Free Text) Assessment: 37 y/o M POD#3 s/p laparscopic appendectomy - f/u AM labs - monitor vitals - cont Tylenol PRN fever - cont IV Abx per ID - Advance diet to FLD - cont pain management - monitor drain output - encourage OOB to chair/Amb/IS use Pt discussed w/ Dr. Lucila Armstrong DO PGY2 <Marc Gaytan - Last Filed: 09/24/17 18:07> Objective - Vital Signs/Intake and Output Vital Signs (last 24 hours): Temp Pulse Resp BP Pulse Ox 99.0 F 72 20 116/63 100 09/22/17 16:20 09/22/17 16:20 09/22/17 16:20 09/22/17 16:20 09/22/17 16:20 - Labs Labs: 09/22/17 07:15 09/22/17 07:15 Attending/Attestation - Attestation I have personally seen and examined this patient.: Yes I have fully participated in the care of the patient.: Yes I have reviewed all pertinent clinical information, including history, physical exam and plan: Yes Notes (Text): Pt was seen and examined at bedside Agree with above note and assessment Pt is improving clinically IV antibiotics ID f.u consult Plan d.w pt and primary team in detail
[2017-09-18 08:09] LABS: HEMOGLOBIN 11.5 g/dL (12.0-18.0); MEAN CELL VOLUME 75.5 fl (80.0-94.0); MEAN CORPUSCULAR HEMOGLOBIN 24.2 pg (27.0-31.0); RBC 4.77 Mil/uL (4.40-5.90); RED CELL DISTRIBUTION WIDTH 15.1 % (11.5-14.5); WHITE BLOOD COUNT 8.4 K/uL (4.8-10.8)
[2017-09-18 08:10] LABS: BLOOD UREA NITROGEN 7 mg/dl (9-20); CALCIUM 7.7 mg/dL (8.4-10.2); GFR AFRICAN-AMERICAN > 60; GFR NON-AFRICAN AMERICAN > 60
[2017-09-18] MEDS: Enoxaparin 40 mg Syringe SC SCH (09:07)
--- NOTE | 2017-09-18 10:51 | CP.PCM.PN ---
Subjective - Date & Time of Evaluation Date of Evaluation: 09/18/17 Time of Evaluation: 09:00 - Subjective Subjective: improving afeb on iv rx for bacteremia Objective - Vital Signs/Intake and Output Vital Signs (last 24 hours): Temp Pulse Resp BP Pulse Ox 98.2 F 81 16 137/87 100 09/18/17 08:28 09/18/17 08:28 09/18/17 08:28 09/18/17 08:28 09/18/17 08:28 Intake and Output: 09/18/17 09/18/17 06:59 18:59 Intake Total 2590 Output Total 2605 Balance -15 - Medications Medications: Current Medications Acetaminophen (Tylenol 325mg Tab) 650 mg PO Q4 PRN PRN Reason: Fever >100.4 F Enoxaparin Sodium (Lovenox) 40 mg SC DAILY [facility] PRN Reason: Protocol Last Admin: 09/18/17 09:07 Dose: 40 mg Metronidazole (Flagyl 500mg/100ml Ns) 100 mls @ 100 mls/hr IVPB Q8@0300,1100, 1900 [facility] PRN Reason: Protocol Last Admin: 09/18/17 10:42 Dose: 100 mls/hr Meropenem 1 gm/ Sodium (Chloride) 100 mls @ 100 mls/hr IVPB Q8 [facility] PRN Reason: Protocol Last Admin: 09/18/17 09:08 Dose: 100 mls/hr Ondansetron HCl (Zofran Inj) 4 mg IVP Q4 PRN PRN Reason: Nausea/Vomiting Oxycodone/Acetaminophen (Percocet 5/325 Mg Tab) 1 tab PO Q4 PRN PRN Reason: Pain, moderate (4-7) Stop: 09/21/17 07:50 Oxycodone/Acetaminophen (Percocet 5/325 Mg Tab) 2 tab PO Q4 PRN PRN Reason: Pain, severe (8-10) Stop: 09/20/17 06:48 Pantoprazole Sodium (Protonix Inj) 40 mg IVP DAILY [facility] Last Admin: 09/18/17 09:09 Dose: 40 mg - Labs Labs: 09/18/17 07:25 09/18/17 07:31 - Constitutional Appears: Non-toxic, Chronically Ill - Head Exam Head Exam: NORMOCEPHALIC - Eye Exam Eye Exam: PERRL - ENT Exam ENT Exam: Mucous Membranes Dry - Neck Exam Neck Exam: absent: Lymphadenopathy - Respiratory Exam Respiratory Exam: Decreased Breath Sounds - Cardiovascular Exam Cardiovascular Exam: REGULAR RHYTHM - GI/Abdominal Exam GI & Abdominal Exam: Distended, Soft - Rectal Exam Rectal Exam: Deferred - Exam Exam: NORMAL INSPECTION Assessment and Plan (1) Sepsis Status: Acute (2) Abdominal pain Status: Acute (3) Appendicitis with perforation Status: Acute
--- NOTE | 2017-09-18 15:58 | CP.PCM.PN ---
Subjective - Date & Time of Evaluation Date of Evaluation: 09/18/17 Time of Evaluation: 10:00 - Subjective Subjective: Patient seen and examined bedside . Feeling much better. Pain is controlled. Hemodynamically stable, Tmax 101 , tolerating liquid diet,passing flattus and ambulating No acute issues overnight Objective - Vital Signs/Intake and Output Vital Signs (last 24 hours): Temp Pulse Resp BP Pulse Ox 100.2 F H 86 16 137/87 99 09/18/17 13:14 09/18/17 13:14 09/18/17 13:14 09/18/17 08:28 09/18/17 13:14 Intake and Output: 09/18/17 09/18/17 06:59 18:59 Intake Total 2590 Output Total 2605 Balance -15 - Medications Medications: Current Medications Acetaminophen (Tylenol 325mg Tab) 650 mg PO Q4 PRN PRN Reason: Fever >100.4 F Enoxaparin Sodium (Lovenox) 40 mg SC DAILY [facility] PRN Reason: Protocol Last Admin: 09/18/17 09:07 Dose: 40 mg Metronidazole (Flagyl 500mg/100ml Ns) 100 mls @ 100 mls/hr IVPB Q8@0300,1100, 1900 [facility] PRN Reason: Protocol Last Admin: 09/18/17 10:42 Dose: 100 mls/hr Meropenem 1 gm/ Sodium (Chloride) 100 mls @ 100 mls/hr IVPB Q8 [facility] PRN Reason: Protocol Last Admin: 09/18/17 09:08 Dose: 100 mls/hr Ondansetron HCl (Zofran Inj) 4 mg IVP Q4 PRN PRN Reason: Nausea/Vomiting Oxycodone/Acetaminophen (Percocet 5/325 Mg Tab) 1 tab PO Q4 PRN PRN Reason: Pain, moderate (4-7) Stop: 09/21/17 07:50 Oxycodone/Acetaminophen (Percocet 5/325 Mg Tab) 2 tab PO Q4 PRN PRN Reason: Pain, severe (8-10) Stop: 09/20/17 06:48 Pantoprazole Sodium (Protonix Inj) 40 mg IVP DAILY [facility] Last Admin: 09/18/17 09:09 Dose: 40 mg - Labs Labs: 09/18/17 07:25 02/05/18 07:31 - Constitutional Appears: Non-toxic, No Acute Distress - Head Exam Head Exam: ATRAUMATIC, NORMAL INSPECTION, NORMOCEPHALIC - Eye Exam Eye Exam: EOMI, Normal appearance, PERRL Pupil Exam: NORMAL ACCOMODATION - ENT Exam ENT Exam: Mucous Membranes Moist, Normal Exam - Neck Exam Neck Exam: Full ROM, Normal Inspection - Respiratory Exam Respiratory Exam: Clear to Ausculation Bilateral, NORMAL BREATHING PATTERN. absent: Prolonged Expiratory Phase, Rales, Rhonchi, Wheezes, Respiratory Distress - Cardiovascular Exam Cardiovascular Exam: REGULAR RHYTHM, RRR, +S1, +S2. absent: JVD - GI/Abdominal Exam GI & Abdominal Exam: Soft, Hypoactive Bowel Sounds. absent: Distended, Guarding , Rigid, Tenderness, Rebound Additional comments: LUCITA drain to lower abdomen with 60 ml sero sanguinous output - Rectal Exam Rectal Exam: Deferred - Extremities Exam Extremities Exam: Full ROM, Normal Capillary Refill, Normal Inspection. absent : Calf Tenderness, Pedal Edema - Back Exam Back Exam: NORMAL INSPECTION - Neurological Exam Neurological Exam: Alert, Awake, CN II-XII Intact, Oriented x3 - Psychiatric Exam Psychiatric exam: Normal Affect, Normal Mood - Skin Skin Exam: Dry, Intact, Normal Color, Warm Assessment and Plan - Assessment and Plan (Free Text) Assessment: 37 yo male with no significant PMH,came in complaining of RLQ pain for 2 days , associated with 5 episodes of vomiting with red material. He had no BM for 3 days and felt febrile, on and off, at home. Ct abdomen showed perforated appendicitis. Patient was started on IV Zosyn and Flagyl, surgery was consulted and taken to OR for laparascopic appendectomy . Patient today is post op day 3, feeling better, passing flatus, febrile Tmax 101 WBC normalized Blood cx positive for gram negative eugenia On Zosyn and Flagyl IV 1. Acute perforated Appendicitis with gram negative bacteremia -- s/p laparascopic appendectomy day 3 ID consulted Blood culture positive for gram negative eugenia pain is controlled passing flatus LUCITA drain with 60 ml serosanguinous output last 24 hours. Keep LUCITA drain in place and monitor output BS hypoactive Tolerating liquid diet . Will advance to regular diet today Promote ambulation continue IVF with KCL @ 150 ml /hr Continue pain medication PRN Continue Zosyn and Flagyl IV Incentive spirometry Monitor strict I/O 2. Hypoaklemia replace with IVF and KCL 3.DVt prophylaxis SCD lovenox
[2017-09-18 22:43] VITALS: RESP 20
[2017-09-19] MEDS: Meropenem 1 GM in Sodium Chloride 0.9% 100 ML IVPB SCH ×3 (00:36→16:43)
[2017-09-19] MEDS: metroNIDAZOLE 500mg/100ml NS 100 ML IVPB SCH ×3 (02:50→18:04)
[2017-09-19 05:55] LABS: HEMOGLOBIN 11.7 g/dL (12.0-18.0); MEAN CELL VOLUME 75.8 fl (80.0-94.0); MEAN CORPUSCULAR HEMOGLOBIN 23.8 pg (27.0-31.0); MEAN CORPUSCULAR HGB CONC 31.5 g/dL (33.0-37.0); RBC 4.91 Mil/uL (4.40-5.90); RED CELL DISTRIBUTION WIDTH 15.2 % (11.5-14.5); WHITE BLOOD COUNT 7.1 K/uL (4.8-10.8)
[2017-09-19 05:58] LABS: BLOOD UREA NITROGEN 8 mg/dl (9-20); CALCIUM 8.2 mg/dL (8.4-10.2); GFR AFRICAN-AMERICAN > 60; GFR NON-AFRICAN AMERICAN > 60
--- NOTE | 2017-09-19 08:01 | CP.PCM.PN ---
<Jaylin Armstrong - Last Filed: 09/19/17 07:59> Subjective - Date & Time of Evaluation Date of Evaluation: 09/19/17 Time of Evaluation: 07:15 - Subjective Subjective: General Surgery Dr. Mccain Pt S&E @bedside. febrile overnight w/ [id number]. pt has no complaints. Reports abd pain yesterday after eating salad. Denies N/V, D/C. (+)BM/Flatus. Frank drain: 95cc x24hrs, serous Objective - Vital Signs/Intake and Output Vital Signs (last 24 hours): Temp Pulse Resp BP Pulse Ox 99.8 F H 77 20 133/80 98 09/19/17 05:00 09/19/17 05:00 09/19/17 05:00 09/19/17 05:00 09/19/17 05:00 Intake and Output: 09/19/17 09/19/17 06:59 18:59 Intake Total 4220 Output Total 3645 Balance 575 - Medications Medications: Current Medications Acetaminophen (Tylenol 325mg Tab) 650 mg PO Q4 PRN PRN Reason: Fever >100.4 F Last Admin: 09/18/17 18:50 Dose: 650 mg Enoxaparin Sodium (Lovenox) 40 mg SC DAILY [facility] PRN Reason: Protocol Last Admin: 09/18/17 09:07 Dose: 40 mg Metronidazole (Flagyl 500mg/100ml Ns) 100 mls @ 100 mls/hr IVPB Q8@0300,1100, 1900 [facility] PRN Reason: Protocol Last Admin: 09/19/17 02:50 Dose: 100 mls/hr Meropenem 1 gm/ Sodium (Chloride) 100 mls @ 100 mls/hr IVPB Q8 [facility] PRN Reason: Protocol Last Admin: 09/19/17 00:36 Dose: 100 mls/hr Ondansetron HCl (Zofran Inj) 4 mg IVP Q4 PRN PRN Reason: Nausea/Vomiting Oxycodone/Acetaminophen (Percocet 5/325 Mg Tab) 1 tab PO Q4 PRN PRN Reason: Pain, moderate (4-7) Stop: 09/21/17 07:50 Oxycodone/Acetaminophen (Percocet 5/325 Mg Tab) 2 tab PO Q4 PRN PRN Reason: Pain, severe (8-10) Stop: 09/20/17 06:48 Pantoprazole Sodium (Protonix Inj) 40 mg IVP DAILY [facility] Last Admin: 09/18/17 09:09 Dose: 40 mg - Labs Labs: 09/19/17 05:25 09/19/17 05:25 - Constitutional Appears: Non-toxic, No Acute Distress - Head Exam Head Exam: NORMAL INSPECTION - Eye Exam Eye Exam: Normal appearance - ENT Exam ENT Exam: Mucous Membranes Moist - Respiratory Exam Respiratory Exam: NORMAL BREATHING PATTERN. absent: Accessory Muscle Use, Respiratory Distress - Cardiovascular Exam Cardiovascular Exam: absent: Bradycardia, Tachycardia - GI/Abdominal Exam GI & Abdominal Exam: Soft, Tenderness (minimal TTP R side). absent: Distended, Firm, Guarding, Rigid, Rebound Additional comments: dressing c/d/i Frank drain in place - Extremities Exam Extremities Exam: Normal Inspection - Neurological Exam Neurological Exam: Alert, Awake, Oriented x3 - Psychiatric Exam Psychiatric exam: Normal Affect, Normal Mood - Skin Skin Exam: Dry, Normal Color, Warm Assessment and Plan - Assessment and Plan (Free Text) Assessment: 37 y/o M POD#4 s/p lap appy - ADAT - cont pain management - cont IV Abx per ID - monitor drain output - cont anti-pyretic PRN - encourage OOB to chair/Amb/IS use. Pt discussed w/ Dr. Lucila Armstrong DO PGY2 <Marc Gaytan - Last Filed: 09/24/17 18:12> Objective - Vital Signs/Intake and Output Vital Signs (last 24 hours): Temp Pulse Resp BP Pulse Ox 99.0 F 72 20 116/63 100 09/22/17 16:20 09/22/17 16:20 09/22/17 16:20 09/22/17 16:20 09/22/17 16:20 - Labs Labs: 09/22/17 07:15 09/22/17 07:15 Attending/Attestation - Attestation I have personally seen and examined this patient.: Yes I have fully participated in the care of the patient.: Yes I have reviewed all pertinent clinical information, including history, physical exam and plan: Yes Notes (Text): Pt was seen and examined at bedside Agree with above note and assessment Pt is improving clinically Low grade fever IV antibiotics DC plan Plan d.w pt in detail
[2017-09-19] MEDS: Enoxaparin 40 mg Syringe SC SCH (08:50)
--- NOTE | 2017-09-19 11:46 | CP.PCM.PN ---
<Adithya Melendez - Last Filed: 09/19/17 14:38> Subjective - Date & Time of Evaluation Date of Evaluation: 09/19/17 Time of Evaluation: 09:15 - Subjective Subjective: 37 y/o M evaluated and examined by bedside. Pt reports feeling much better. Maximum temperature overnight 100degF. Pt reports abdominal pain yesterday afternoon after having a salad, pt attributes pain to salad sauce, pain alleviated spontaneously, currently not present. Pt is tolerating PO-regular diet, passing gasses and had a normal soft bowel movement last night. Objective - Vital Signs/Intake and Output Vital Signs (last 24 hours): Temp Pulse Resp BP Pulse Ox 100 F H 77 20 145/85 97 09/19/17 08:26 09/19/17 08:26 09/19/17 08:26 09/19/17 08:26 09/19/17 08:26 Intake and Output: 09/19/17 09/19/17 06:59 18:59 Intake Total 4220 Output Total 3645 Balance 575 - Medications Medications: Current Medications Acetaminophen (Tylenol 325mg Tab) 650 mg PO Q4 PRN PRN Reason: Fever >100.4 F Last Admin: 09/18/17 18:50 Dose: 650 mg Enoxaparin Sodium (Lovenox) 40 mg SC DAILY [facility] PRN Reason: Protocol Last Admin: 09/19/17 08:50 Dose: 40 mg Metronidazole (Flagyl 500mg/100ml Ns) 100 mls @ 100 mls/hr IVPB Q8@0300,1100, 1900 [facility] PRN Reason: Protocol Last Admin: 09/19/17 10:02 Dose: 100 mls/hr Meropenem 1 gm/ Sodium (Chloride) 100 mls @ 100 mls/hr IVPB Q8 [facility] PRN Reason: Protocol Last Admin: 09/19/17 08:50 Dose: 100 mls/hr Ondansetron HCl (Zofran Inj) 4 mg IVP Q4 PRN PRN Reason: Nausea/Vomiting Oxycodone/Acetaminophen (Percocet 5/325 Mg Tab) 1 tab PO Q4 PRN PRN Reason: Pain, moderate (4-7) Stop: 09/21/17 07:50 Oxycodone/Acetaminophen (Percocet 5/325 Mg Tab) 2 tab PO Q4 PRN PRN Reason: Pain, severe (8-10) Stop: 09/20/17 06:48 Pantoprazole Sodium (Protonix Inj) 40 mg IVP DAILY [facility] Last Admin: 09/19/17 08:50 Dose: 40 mg - Labs Labs: 09/19/17 05:25 09/19/17 05:25 - Constitutional Appears: Well, No Acute Distress - Head Exam Head Exam: ATRAUMATIC, NORMAL INSPECTION - Eye Exam Eye Exam: EOMI, Normal appearance - ENT Exam ENT Exam: Mucous Membranes Moist - Neck Exam Neck Exam: Full ROM, Normal Inspection - Respiratory Exam Respiratory Exam: Clear to Ausculation Bilateral, NORMAL BREATHING PATTERN - Cardiovascular Exam Cardiovascular Exam: REGULAR RHYTHM, +S1, +S2 - GI/Abdominal Exam GI & Abdominal Exam: Soft, Tenderness (mild on RLQ. ), Normal Bowel Sounds - Neurological Exam Neurological Exam: Alert, Awake, Oriented x3 Assessment and Plan - Assessment and Plan (Free Text) Assessment: 37 yo male with no significant PMHX, admittted for evaluation and management of perforated appendicitis. Plan: 1. Acute perforated Appendicitis with gram negative bacteremia s/p laparascopic appendectomy day 4 - ID on board - Blood culture positive for gram negative eugenia on 09/15/17 - 94cc serous drainage from LUCITA. Keep LUCITA drain in place and monitor output - Tolerating regular diet today - Promote ambulation - continue IVF with KCL @ 150 ml /hr - Acetaminophen for fever PRN. - Percocet for pain management, PRN. - Incentive spirometry - Monitor strict I/O - Zofran PRN and Pantoprazole. - Currently on Meropenem and Flagyl IV 2. Hypoaklemia - Today, Serum potassium level WNL. - Serum K+ 3.4 on 09/17/17. 3.DVT prophylaxis - SCD - Lovenox SC <Vee Leigh - Last Filed: 09/19/17 14:46> Objective - Vital Signs/Intake and Output Vital Signs (last 24 hours): Temp Pulse Resp BP Pulse Ox 98.9 F 86 20 136/79 100 09/19/17 12:55 09/19/17 12:55 09/19/17 12:55 09/19/17 12:55 09/19/17 12:55 Intake and Output: 09/19/17 09/19/17 06:59 18:59 Intake Total 4220 700 Output Total 3645 440 Balance 575 260 - Medications Medications: Current Medications Acetaminophen (Tylenol 325mg Tab) 650 mg PO Q4 PRN PRN Reason: Fever >100.4 F Last Admin: 09/18/17 18:50 Dose: 650 mg Enoxaparin Sodium (Lovenox) 40 mg SC DAILY [facility] PRN Reason: Protocol Last Admin: 09/19/17 08:50 Dose: 40 mg Metronidazole (Flagyl 500mg/100ml Ns) 100 mls @ 100 mls/hr IVPB Q8@0300,1100, 1900 [facility] PRN Reason: Protocol Last Admin: 09/19/17 10:02 Dose: 100 mls/hr Meropenem 1 gm/ Sodium (Chloride) 100 mls @ 100 mls/hr IVPB Q8 [facility] PRN Reason: Protocol Last Admin: 09/19/17 08:50 Dose: 100 mls/hr Ondansetron HCl (Zofran Inj) 4 mg IVP Q4 PRN PRN Reason: Nausea/Vomiting Oxycodone/Acetaminophen (Percocet 5/325 Mg Tab) 1 tab PO Q4 PRN PRN Reason: Pain, moderate (4-7) Stop: 09/21/17 07:50 Oxycodone/Acetaminophen (Percocet 5/325 Mg Tab) 2 tab PO Q4 PRN PRN Reason: Pain, severe (8-10) Stop: 09/20/17 06:48 Pantoprazole Sodium (Protonix Inj) 40 mg IVP DAILY [facility] Last Admin: 09/19/17 08:50 Dose: 40 mg - Labs Labs: 09/19/17 05:25 09/19/17 05:25 Attending/Attestation - Attestation I have personally seen and examined this patient.: Yes I have fully participated in the care of the patient.: Yes I have reviewed all pertinent clinical information, including history, physical exam and plan: Yes Notes (Text): Perforated Appendicitis s/p Lap Appendectomy Pt feels better still with low grade fever this am tolerating Po diet had BM last night Drain still in place -cont IV abx
[2017-09-20] MEDS: Meropenem 1 GM in Sodium Chloride 0.9% 100 ML IVPB SCH ×3 (00:29→17:10)
[2017-09-20] MEDS: metroNIDAZOLE 500mg/100ml NS 100 ML IVPB SCH ×3 (03:57→18:28)
--- NOTE | 2017-09-20 07:25 | CP.PCM.PN ---
<Natalie Rosales - Last Filed: 09/20/17 07:32> Subjective - Date & Time of Evaluation Date of Evaluation: 09/20/17 Time of Evaluation: 07:25 - Subjective Subjective: General Surgery Progress Note - Dr. Mccain Pt seen and examined at bedside. Denies any episodes of fever overnight. Pt has no complaints. Reports abd pain again yesterday after eating salad, saying it is too difficult to eat. Denies F/C, /N/V, D/C. Admits to (+)BM/Flatus. Frank drain: 80cc x24hrs, serous Objective - Vital Signs/Intake and Output Vital Signs (last 24 hours): Temp Pulse Resp BP Pulse Ox 99.5 F 79 20 129/72 97 09/20/17 01:00 09/20/17 01:00 09/20/17 01:00 09/20/17 01:00 09/20/17 01:00 Intake and Output: 09/20/17 09/20/17 06:59 18:59 Intake Total 1200 Output Total 1040 Balance 160 - Medications Medications: Current Medications Acetaminophen (Tylenol 325mg Tab) 650 mg PO Q4 PRN PRN Reason: Fever >100.4 F Last Admin: 09/18/17 18:50 Dose: 650 mg Docusate Sodium (Colace) 100 mg PO BID [facility] Last Admin: 09/19/17 18:04 Dose: 100 mg Enoxaparin Sodium (Lovenox) 40 mg SC DAILY [facility] PRN Reason: Protocol Last Admin: 09/19/17 08:50 Dose: 40 mg Metronidazole (Flagyl 500mg/100ml Ns) 100 mls @ 100 mls/hr IVPB Q8@0300,1100, 1900 [facility] PRN Reason: Protocol Last Admin: 09/20/17 03:57 Dose: 100 mls/hr Meropenem 1 gm/ Sodium (Chloride) 100 mls @ 100 mls/hr IVPB Q8 [facility] PRN Reason: Protocol Last Admin: 09/20/17 00:29 Dose: 100 mls/hr Ondansetron HCl (Zofran Inj) 4 mg IVP Q4 PRN PRN Reason: Nausea/Vomiting Oxycodone/Acetaminophen (Percocet 5/325 Mg Tab) 1 tab PO Q4 PRN PRN Reason: Pain, moderate (4-7) Stop: 09/21/17 07:50 Pantoprazole Sodium (Protonix Ec Tab) 40 mg PO DAILY [facility] - Labs Labs: 09/19/17 05:25 09/19/17 05:25 - Constitutional Appears: Well, Non-toxic, No Acute Distress - GI/Abdominal Exam GI & Abdominal Exam: Soft, Tenderness Additional comments: mild tenderness to palpation of RLQ Frank drain in place - Extremities Exam Extremities Exam: Normal Inspection - Neurological Exam Neurological Exam: Alert, Awake, Oriented x3 - Psychiatric Exam Psychiatric exam: Normal Affect, Normal Mood - Skin Skin Exam: Dry, Normal Color Assessment and Plan - Assessment and Plan (Free Text) Assessment: 37 y/o M POD#5 s/p lap appy - ADAT - encouraged pt to stick with soft foods for now - cont pain management - cont IV Abx per ID - monitor drain output - cont anti-pyretic PRN - encourage OOB to chair/Amb/IS use - pt will be D/C with drain in place, and was instructed to F/U in Dr. Gaytan [facility] Pt discussed w/ Dr. Gaytan <Marc Gaytan - Last Filed: 09/24/17 18:17> Objective - Vital Signs/Intake and Output Vital Signs (last 24 hours): Temp Pulse Resp BP Pulse Ox 99.0 F 72 20 116/63 100 09/22/17 16:20 09/22/17 16:20 09/22/17 16:20 09/22/17 16:20 09/22/17 16:20 - Labs Labs: 09/22/17 07:15 09/22/17 07:15 Attending/Attestation - Attestation I have personally seen and examined this patient.: Yes I have fully participated in the care of the patient.: Yes I have reviewed all pertinent clinical information, including history, physical exam and plan: Yes Notes (Text): Pt was seen and examined at bedside Agree with above note and assessment Pt is improved clinically Can be DC home on Po antibiotics f.u as out pt Drain removal in my office next week Plan d.w pt and primary team in detail Risk and benefit explained in detail.
[2017-09-20] MEDS: Enoxaparin 40 mg Syringe SC SCH (08:46)
[2017-09-20] MEDS: Pantoprazole 40 mg EC Tab PO SCH (09:45)
--- NOTE | 2017-09-20 10:33 | CP.PCM.PN ---
<Adithya Melendez - Last Filed: 09/20/17 14:36> Subjective - Date & Time of Evaluation Date of Evaluation: 09/20/17 Time of Evaluation: 09:15 - Subjective Subjective: 37 y/o M admitted for evaluation and management of perforated appendicitis. Pt reports feeling well. Pt tolerating PO, able to ambulate inside room. Pt report mild abdominal discomfort when eating; hence, he is feeding slowly. Pt has been havinf a Temp of 100.2 deg F this morning. Last BM last night, it was dark yellow non-bloody diarrhea. Denies chills, dizziness, N/V, headache, dizziness or urinary problems. Objective - Vital Signs/Intake and Output Vital Signs (last 24 hours): Temp Pulse Resp BP Pulse Ox 100.2 F H 71 20 134/85 97 09/20/17 09:00 09/20/17 09:00 09/20/17 09:00 09/20/17 09:00 09/20/17 09:00 Intake and Output: 09/20/17 09/20/17 06:59 18:59 Intake Total 1200 620 Output Total 1040 280 Balance 160 340 - Medications Medications: Current Medications Acetaminophen (Tylenol 325mg Tab) 650 mg PO Q4 PRN PRN Reason: Fever >100.4 F Last Admin: 09/18/17 18:50 Dose: 650 mg Docusate Sodium (Colace) 100 mg PO BID [facility] Last Admin: 09/20/17 08:46 Dose: 100 mg Enoxaparin Sodium (Lovenox) 40 mg SC DAILY [facility] PRN Reason: Protocol Last Admin: 09/20/17 08:46 Dose: 40 mg Metronidazole (Flagyl 500mg/100ml Ns) 100 mls @ 100 mls/hr IVPB Q8@0300,1100, 1900 [facility] PRN Reason: Protocol Last Admin: 09/20/17 10:08 Dose: 100 mls/hr Meropenem 1 gm/ Sodium (Chloride) 100 mls @ 100 mls/hr IVPB Q8 [facility] PRN Reason: Protocol Last Admin: 09/20/17 08:47 Dose: 100 mls/hr Ondansetron HCl (Zofran Inj) 4 mg IVP Q4 PRN PRN Reason: Nausea/Vomiting Oxycodone/Acetaminophen (Percocet 5/325 Mg Tab) 1 tab PO Q4 PRN PRN Reason: Pain, moderate (4-7) Stop: 09/21/17 07:50 Pantoprazole Sodium (Protonix Ec Tab) 40 mg PO DAILY [facility] Last Admin: 09/20/17 09:45 Dose: 40 mg - Labs Labs: 09/19/17 05:25 09/19/17 05:25 - Constitutional Appears: Well, No Acute Distress - Head Exam Head Exam: NORMAL INSPECTION - Eye Exam Eye Exam: EOMI, Normal appearance - ENT Exam ENT Exam: Mucous Membranes Moist - Neck Exam Neck Exam: Full ROM - Respiratory Exam Respiratory Exam: Clear to Ausculation Bilateral, NORMAL BREATHING PATTERN - Cardiovascular Exam Cardiovascular Exam: REGULAR RHYTHM, +S1, +S2 - GI/Abdominal Exam GI & Abdominal Exam: Soft, Tenderness (diffusely mild but mor predimantly on RLQ area. Dressings in abomen are clean, dry and intact. ) - Extremities Exam Extremities Exam: Full ROM - Neurological Exam Neurological Exam: Alert, Awake, Oriented x3 Assessment and Plan - Assessment and Plan (Free Text) Assessment: 37 yo male with no significant PMHX, admittted for evaluation and management of perforated appendicitis. Plan: 1. Acute perforated Appendicitis with gram negative bacteremia s/p laparascopic appendectomy day 5 - ID on board - Blood culture positive for gram negative eugenia on 09/15/17 - 80cc serous drainage from LUCITA, today after 24 hours. Keep LUCITA drain in place and monitor output - Tolerating regular diet today. Promote ambulation - Acetaminophen for fever PRN., Docusate for bowel movement enhancer. - Percocet for pain management, PRN. - Incentive spirometry - Monitor strict I/O - Zofran PRN and Pantoprazole. - Currently on Meropenem and Flagyl IV - F/U Gen Surgery discharge recommendations. - Plan is to discharge pt on Monday with PO Flagyl adn Ciprofloxacin for 1 week. - CBC and BMP in the AM. 2. Hypokalemia - Yesterday, Serum potassium level WNL. - Serum K+ 3.4 on 09/17/17. - CBC and BMP in the AM. 3. Fever, s/p Laparoscopic Appendectomy - 100.6 dgF 2 nights ago. (09/18/17) - 100.2 last night. (09/19/17) - PO Acetaminophen PRN. - Currently on Meropenem and Flagyl IV 4.DVT prophylaxis - SCD - Lovenox SC <ReeseVee Savannah - Last Filed: 09/20/17 15:00> Objective - Vital Signs/Intake and Output Vital Signs (last 24 hours): Temp Pulse Resp BP Pulse Ox 99.1 F 75 20 134/85 98 09/20/17 12:25 09/20/17 12:25 09/20/17 12:25 09/20/17 09:00 09/20/17 12:25 Intake and Output: 09/20/17 09/20/17 06:59 18:59 Intake Total 1200 620 Output Total 1040 540 Balance 160 80 - Medications Medications: Current Medications Acetaminophen (Tylenol 325mg Tab) 650 mg PO Q4 PRN PRN Reason: Fever >100.4 F Last Admin: 09/18/17 18:50 Dose: 650 mg Docusate Sodium (Colace) 100 mg PO BID [facility] Last Admin: 09/20/17 08:46 Dose: 100 mg Enoxaparin Sodium (Lovenox) 40 mg SC DAILY [facility] PRN Reason: Protocol Last Admin: 09/20/17 08:46 Dose: 40 mg Metronidazole (Flagyl 500mg/100ml Ns) 100 mls @ 100 mls/hr IVPB Q8@0300,1100, 1900 [facility] PRN Reason: Protocol Last Admin: 09/20/17 10:08 Dose: 100 mls/hr Meropenem 1 gm/ Sodium (Chloride) 100 mls @ 100 mls/hr IVPB Q8 [facility] PRN Reason: Protocol Last Admin: 09/20/17 08:47 Dose: 100 mls/hr Ondansetron HCl (Zofran Inj) 4 mg IVP Q4 PRN PRN Reason: Nausea/Vomiting Oxycodone/Acetaminophen (Percocet 5/325 Mg Tab) 1 tab PO Q4 PRN PRN Reason: Pain, moderate (4-7) Stop: 09/21/17 07:50 Pantoprazole Sodium (Protonix Ec Tab) 40 mg PO DAILY [facility] Last Admin: 09/20/17 09:45 Dose: 40 mg - Labs Labs: 09/19/17 05:25 09/19/17 05:25 Attending/Attestation - Attestation I have personally seen and examined this patient.: Yes I have fully participated in the care of the patient.: Yes I have reviewed all pertinent clinical information, including history, physical exam and plan: Yes Notes (Text): Perforated Appendicitis -pt still febrile - will cont IV antibiotics - discussed with Dr Evans - rec to cont IV antibiotics till Monday then pt can be d/c home on Po Cipro and Flagyl x 1 more week . - Pt will be d/c with drain and Dr Gaytan will remove drain when pt ff up in his office
--- NOTE | 2017-09-20 14:14 | CP.PCM.PN ---
Subjective - Date & Time of Evaluation Date of Evaluation: 09/20/17 Time of Evaluation: 08:00 - Subjective Subjective: bacteroides in blood cont rx for 7 days iv then PO Objective - Vital Signs/Intake and Output Vital Signs (last 24 hours): Temp Pulse Resp BP Pulse Ox 99.1 F 75 20 134/85 98 09/20/17 12:25 09/20/17 12:25 09/20/17 12:25 09/20/17 09:00 09/20/17 12:25 Intake and Output: 09/20/17 09/20/17 06:59 18:59 Intake Total 1200 620 Output Total 1040 280 Balance 160 340 - Medications Medications: Current Medications Acetaminophen (Tylenol 325mg Tab) 650 mg PO Q4 PRN PRN Reason: Fever >100.4 F Last Admin: 09/18/17 18:50 Dose: 650 mg Docusate Sodium (Colace) 100 mg PO BID [facility] Last Admin: 09/20/17 08:46 Dose: 100 mg Enoxaparin Sodium (Lovenox) 40 mg SC DAILY [facility] PRN Reason: Protocol Last Admin: 09/20/17 08:46 Dose: 40 mg Metronidazole (Flagyl 500mg/100ml Ns) 100 mls @ 100 mls/hr IVPB Q8@0300,1100, 1900 [facility] PRN Reason: Protocol Last Admin: 09/20/17 10:08 Dose: 100 mls/hr Meropenem 1 gm/ Sodium (Chloride) 100 mls @ 100 mls/hr IVPB Q8 [facility] PRN Reason: Protocol Last Admin: 09/20/17 08:47 Dose: 100 mls/hr Ondansetron HCl (Zofran Inj) 4 mg IVP Q4 PRN PRN Reason: Nausea/Vomiting Oxycodone/Acetaminophen (Percocet 5/325 Mg Tab) 1 tab PO Q4 PRN PRN Reason: Pain, moderate (4-7) Stop: 09/21/17 07:50 Pantoprazole Sodium (Protonix Ec Tab) 40 mg PO DAILY [facility] Last Admin: 09/20/17 09:45 Dose: 40 mg - Labs Labs: 09/19/17 05:25 09/19/17 05:25 - Constitutional Appears: Well - Head Exam Head Exam: ATRAUMATIC, NORMAL INSPECTION, NORMOCEPHALIC - Eye Exam Eye Exam: EOMI, Normal appearance, PERRL Pupil Exam: NORMAL ACCOMODATION, PERRL - ENT Exam ENT Exam: Mucous Membranes Moist, Normal Exam - Neck Exam Neck Exam: Full ROM, Normal Inspection. absent: Lymphadenopathy - Respiratory Exam Respiratory Exam: Clear to Ausculation Bilateral, NORMAL BREATHING PATTERN - Cardiovascular Exam Cardiovascular Exam: REGULAR RHYTHM, +S1, +S2. absent: Murmur - GI/Abdominal Exam GI & Abdominal Exam: Soft, Normal Bowel Sounds. absent: Tenderness - Rectal Exam Rectal Exam: NORMAL INSPECTION - Exam Exam: Circumcision, NORMAL INSPECTION External exam: NORMAL EXTERNAL EXAM Speculum exam: NORMAL SPECULUM EXAM Bimanual exam: NORMAL BIMANUAL EXAM - Extremities Exam Extremities Exam: Full ROM, Normal Capillary Refill, Normal Inspection. absent : Joint Swelling, Pedal Edema - Back Exam Back Exam: NORMAL INSPECTION - Neurological Exam Neurological Exam: Alert, Awake, CN II-XII Intact, Normal Gait, Oriented x3 - Psychiatric Exam Psychiatric exam: Normal Affect, Normal Mood - Skin Skin Exam: Dry, Intact, Normal Color, Warm Assessment and Plan (1) Sepsis Status: Acute (2) Abdominal pain Status: Acute (3) Appendicitis with perforation Status: Acute
[2017-09-21] MEDS: Meropenem 1 GM in Sodium Chloride 0.9% 100 ML IVPB SCH ×3 (01:02→16:20)
[2017-09-21] MEDS: metroNIDAZOLE 500mg/100ml NS 100 ML IVPB SCH ×3 (02:22→18:25)
[2017-09-21 06:45] LABS: BASO # 0.1 K/uL (0.0-0.2); BASO % 1.5 % (0.0-2.0); EOS # 0.2 K/uL (0.0-0.7); EOS % 2.5 % (0.0-4.0); HEMOGLOBIN 12.1 g/dL (12.0-18.0); MEAN CELL VOLUME 76.4 fl (80.0-94.0); MEAN CORPUSCULAR HEMOGLOBIN 23.9 pg (27.0-31.0); MEAN CORPUSCULAR HGB CONC 31.3 g/dL (33.0-37.0); MEAN PLATELET VOLUME 6.8 fl (7.2-11.7); MONO # 1.3 K/uL (0.0-0.8); MONO % 18.5 % (0.0-10.0); NEUT # 3.5 K/uL (1.8-7.0); NEUT % 49.5 % (50.0-75.0); NRBC % 0.1 % (0.0-0.0); RBC 5.06 Mil/uL (4.40-5.90); RED CELL DISTRIBUTION WIDTH 15.1 % (11.5-14.5)
[2017-09-21 07:21] LABS: BLOOD UREA NITROGEN 9 mg/dl (9-20); CALCIUM 8.4 mg/dL (8.4-10.2); GFR AFRICAN-AMERICAN > 60; GFR NON-AFRICAN AMERICAN > 60
[2017-09-21] MEDS: Enoxaparin 40 mg Syringe SC SCH (09:32)
[2017-09-21] MEDS: Pantoprazole 40 mg EC Tab PO SCH (09:39)
--- NOTE | 2017-09-21 10:31 | CP.PCM.PN ---
Subjective - Date & Time of Evaluation Date of Evaluation: 09/21/17 Time of Evaluation: 09:30 - Subjective Subjective: 37 y/o M evalauted and examined by bedside. Pt report feeling well, appetite improving, eating slowly. Pt denies nausea and abdominal pain. Pt afebrile and with NO acute events overnight. Pt reports Last bowel movement was this morning , paste like. Objective - Vital Signs/Intake and Output Vital Signs (last 24 hours): Temp Pulse Resp BP Pulse Ox 98.9 F 67 20 126/51 L 98 09/21/17 05:00 09/21/17 05:00 09/21/17 05:00 09/21/17 05:00 09/21/17 05:00 Intake and Output: 09/21/17 09/21/17 06:59 18:59 Intake Total 800 Output Total 1225 Balance -425 - Medications Medications: Current Medications Acetaminophen (Tylenol 325mg Tab) 650 mg PO Q4 PRN PRN Reason: Fever >100.4 F Last Admin: 09/18/17 18:50 Dose: 650 mg Docusate Sodium (Colace) 100 mg PO BID [facility] Last Admin: 09/21/17 09:34 Dose: 100 mg Enoxaparin Sodium (Lovenox) 40 mg SC DAILY [facility] PRN Reason: Protocol Last Admin: 09/21/17 09:32 Dose: 40 mg Metronidazole (Flagyl 500mg/100ml Ns) 100 mls @ 100 mls/hr IVPB Q8@0300,1100, 1900 [facility] PRN Reason: Protocol Last Admin: 09/21/17 02:22 Dose: 100 mls/hr Meropenem 1 gm/ Sodium (Chloride) 100 mls @ 100 mls/hr IVPB Q8 [facility] PRN Reason: Protocol Last Admin: 09/21/17 09:35 Dose: 100 mls/hr Ondansetron HCl (Zofran Inj) 4 mg IVP Q4 PRN PRN Reason: Nausea/Vomiting Pantoprazole Sodium (Protonix Ec Tab) 40 mg PO DAILY [facility] Last Admin: 09/21/17 09:39 Dose: 40 mg - Labs Labs: 09/21/17 06:10 09/21/17 06:10 - Constitutional Appears: Well, No Acute Distress - Head Exam Head Exam: ATRAUMATIC, NORMAL INSPECTION - Eye Exam Eye Exam: EOMI, Normal appearance - ENT Exam ENT Exam: Mucous Membranes Moist - Neck Exam Neck Exam: Full ROM, Normal Inspection - Respiratory Exam Respiratory Exam: Clear to Ausculation Bilateral, NORMAL BREATHING PATTERN - Cardiovascular Exam Cardiovascular Exam: REGULAR RHYTHM, +S1, +S2 - GI/Abdominal Exam GI & Abdominal Exam: Distended (mildly.), Soft. absent: Guarding, Rigid, Tenderness - Extremities Exam Extremities Exam: Full ROM - Neurological Exam Neurological Exam: Alert, Awake, Oriented x3 Assessment and Plan - Assessment and Plan (Free Text) Assessment: 37 yo male with no significant PMHX, admittted for evaluation and management of perforated appendicitis. Plan: 1. Acute perforated Appendicitis with gram negative bacteremia s/p laparascopic appendectomy day 5 - Blood culture positive for gram negative eugenia on 09/15/17 - LUCITA drain in place, monitor output - Promote ambulation, incentive spirometry, monitor strict I/O - Acetaminophen for fever PRN., Docusate for bowel movement enhancement. - Percocet for pain management, PRN. - Zofran PRN and Pantoprazole. - Currently on Meropenem and Flagyl IV - F/U Gen Surgery discharge recommendations. - Plan is to discharge tomorrow with PO Flagyl and Ciprofloxacin for 1 week. - CBC and BMP in the AM. 2. Hypokalemia - Resolved. - Today 4.1 - WNL. - Serum K+ 3.4 on 09/17/17. - CBC and BMP in the AM. 3. Fever, s/p Laparoscopic Appendectomy - Last fever episode: 100.2 (on 09/19/17)-2 days ago - PO Acetaminophen PRN. - Currently on Meropenem and Flagyl IV 4.DVT prophylaxis - SCD - Lovenox SC
[2017-09-22] MEDS: Meropenem 1 GM in Sodium Chloride 0.9% 100 ML IVPB SCH ×3 (01:23→16:59)
[2017-09-22] MEDS: metroNIDAZOLE 500mg/100ml NS 100 ML IVPB SCH ×2 (02:38→11:32)
[2017-09-22 07:40] LABS: HEMOGLOBIN 12.3 g/dL (12.0-18.0); MEAN CELL VOLUME 76.3 fl (80.0-94.0); MEAN CORPUSCULAR HEMOGLOBIN 23.9 pg (27.0-31.0); MEAN CORPUSCULAR HGB CONC 31.2 g/dL (33.0-37.0); RBC 5.14 Mil/uL (4.40-5.90)
[2017-09-22 07:53] LABS: BLOOD UREA NITROGEN 11 mg/dl (9-20); CALCIUM 8.4 mg/dL (8.4-10.2); GFR AFRICAN-AMERICAN > 60; GFR NON-AFRICAN AMERICAN > 60
[2017-09-22] MEDS: Pantoprazole 40 mg EC Tab PO SCH (09:43)
[2017-09-22] MEDS: Enoxaparin 40 mg Syringe SC SCH (09:44)
--- NOTE | 2017-09-22 09:50 | CP.PCM.DIS ---
Provider - Provider Date of Admission: 09/15/17 09:32 Attending physician: Himanshu Ricci MD Primary care physician: None. Consults: General Surgery: Rolf Ruth Infectology: Dr Mckay; Dr Yadav. Time Spent in preparation of Discharge (in minutes): 30 Diagnosis - Discharge Diagnosis (1) Appendicitis with perforation Status: Acute Comment: - S/P appendectomy. - Pt tolerating PO, discharged on PO Ciprofloxacin and Metronidazole for 1 week. Pt will f/u with Dr Mckay on . - ER Precautions discussed with pt. Hospital Course - Lab Results Lab Results: Micro Results 09/15/17 06:30 Blood Blood Culture - Final Bacteroides Fragilis 09/15/17 06:30 Blood Gram Stain - Final Most Recent Lab Values WBC 7.0 K/uL (4.8-10.8) 09/22/17 07:15 RBC 5.14 Mil/uL (4.40-5.90) 09/22/17 07:15 Hgb 12.3 g/dL (12.0-18.0) 09/22/17 07:15 Hct 39.2 % (35.0-51.0) 09/22/17 07:15 MCV 76.3 fl (80.0-94.0) L 09/22/17 07:15 MCH 23.9 pg (27.0-31.0) L 09/22/17 07:15 MCHC 31.2 g/dL (33.0-37.0) L 09/22/17 07:15 RDW 15.0 % (11.5-14.5) H 09/22/17 07:15 Plt Count 320 K/uL (130-400) 09/22/17 07:15 MPV 6.8 fl (7.2-11.7) L 09/21/17 06:10 Neut % (Auto) 49.5 % (50.0-75.0) L 09/21/17 06:10 Lymph % (Auto) 28.0 % (20.0-40.0) 09/21/17 06:10 Sibley % (Auto) 18.5 % (0.0-10.0) H 09/21/17 06:10 Eos % (Auto) 2.5 % (0.0-4.0) 09/21/17 06:10 Baso % (Auto) 1.5 % (0.0-2.0) 09/21/17 06:10 Neut # (Auto) 3.5 K/uL (1.8-7.0) 09/21/17 06:10 Lymph # (Auto) 2.0 K/uL (1.0-4.3) 09/21/17 06:10 Sibley # (Auto) 1.3 K/uL (0.0-0.8) H 09/21/17 06:10 Eos # (Auto) 0.2 K/uL (0.0-0.7) 09/21/17 06:10 Baso # (Auto) 0.1 K/uL (0.0-0.2) 09/21/17 06:10 Neutrophils % (Manual) 88 % (42-75) H 09/15/17 06:46 Lymphocytes % (Manual) 5 % (20-50) L 09/15/17 06:46 Monocytes % (Manual) 7 % (0-10) 09/15/17 06:46 Platelet Estimate Normal (NORMAL) 09/15/17 06:46 Anisocytosis (manual) Slight 09/15/17 06:46 Sodium 139 mmol/l (132-148) 09/22/17 07:15 Potassium 4.2 MMOL/L (3.6-5.0) 09/22/17 07:15 Chloride 102 mmol/L (98-107) 09/22/17 07:15 Carbon Dioxide 31 mmol/L (22-30) H 09/22/17 07:15 Anion Gap 10 (10-20) 09/22/17 07:15 BUN 11 mg/dl (9-20) 09/22/17 07:15 Creatinine 0.8 mg/dl (0.8-1.5) 09/22/17 07:15 Est GFR ( Amer) > 60 09/22/17 07:15 Est GFR (Non-Af Amer) > 60 09/22/17 07:15 Random Glucose 104 mg/dL (75-110) 09/22/17 07:15 Lactic Acid 0.9 MMOL/L (0.7-2.1) 09/15/17 06:46 Calcium 8.4 mg/dL (8.4-10.2) 09/22/17 07:15 Phosphorus 2.5 mg/dl (2.5-4.5) 09/16/17 12:47 Magnesium 1.7 MG/DL (1.6-2.3) 09/16/17 12:47 Total Bilirubin 1.4 mg/dl (0.2-1.3) H 09/15/17 06:46 AST 25 U/L (17-59) 09/15/17 06:46 ALT 37 U/L (21-72) 09/15/17 06:46 Alkaline Phosphatase 50 U/L (38-126) 09/15/17 06:46 Total Protein 8.1 G/DL (6.3-8.2) 09/15/17 06:46 Albumin 4.5 g/dL (3.5-5.0) 09/15/17 06:46 Globulin 3.6 gm/dL (2.2-3.9) 09/15/17 06:46 Albumin/Globulin Ratio 1.3 (1.0-2.1) 09/15/17 06:46 - Hospital Course Hospital Course: 37 y/o M was admitted for management of acute perforated appendicitis. Pt was started on IV Zosyn and Metronidazole. Laparoscopic appendectomy was performed on 09/15/17. LUCITA drain placed. Blood Cx showed Bacteroides growth, Meropenem was added and Zosyn discontinued as per ID. Pt had fever after surgery, controlled, last elevated temp 100.2 degF 2 days ago. Pt tolerating PO, passing gasses and having bowel movements. Pt discharged with LUCITA in place, on PO Ciprofloxacin and Metronidazole for 1 week. Pt will f/u with Gen Surgery on 10/10/17. - Date & Time of H&P Date of H&P: 09/22/17 Time of H&P: 09:00 Discharge Exam - Head Exam Head Exam: ATRAUMATIC, NORMAL INSPECTION - Eye Exam Eye Exam: EOMI, Normal appearance - ENT Exam ENT Exam: Mucous Membranes Moist - Neck Exam Neck exam: Full Rom - Respiratory Exam Respiratory Exam: Clear to PA & Lateral, UNREMARKABLE - Cardiovascular Exam Cardiovascular Exam: REGULAR RHYTHM, +S1, +S2 - GI/Abdominal Exam GI & Abdominal Exam: Distended, Normal Bowel Sounds, Unremarkable. absent: Guarding, Rebound, Rigid, Tenderness Additional comments: LUCITA drain in place. Dressings on laparoscopic incison are clean, dry and intact. - Rectal Exam Rectal Exam: NORMAL INSPECTION - Neurological Exam Neurological exam: Alert, Oriented x3 Discharge Plan - Discharge Medications Prescriptions: Ciprofloxacin HCl [Cipro] 500 mg PO Q12 #14 tablet Metronidazole [Flagyl] 500 mg PO TID #21 tablet - Follow Up Plan Condition: STABLE Disposition: HOME/ ROUTINE Additional Instructions: APPOINTMENT WITH DR. MCKAY ON 10/10/2017 @ 1:30PM [address] [place] [address], [facility] [phone] * [facility]* - Please f/u with Dr Mckay. - Complete antibiotics by mouth x 7 days. - Follow a soft healthy diet. Proper home wound care or surgical incisions daily and keep them dry. - Follow nurse instructions in the care of LUCITA drain.
[2017-09-22] MEDS ORDERED: Influenza Vaccine 18yr & older 0.5 ML/45 MCG SYR IM ONE (11:02)
[2017-09-22 16:49] VITALS: BP 116/63; PULSE 72; TEMP 99; O2SAT 100
== END 2017-09-22 18:59 | disposition home or self-care (01) | DRG 553 ==
LOC: H.ER 05:45 → H.ERHOLD 09:32 → H.PEDS 11:44
PROC: 0DNW4ZZ Release Peritoneum, Percutaneous Endoscopic Approach (ICD-10-PCS; 2017-09-15)
PROC: 0DTJ4ZZ Resection of Appendix, Percutaneous Endoscopic Approach (ICD-10-PCS; principal; 2017-09-15 15:15)
PROC: 3E0234Z Introduction of Serum, Toxoid and Vaccine into Muscle, Percutaneous Approach (ICD-10-PCS; 2017-09-22)
DX: K35.3 Acute appendicitis with localized peritonitis (principal); A41.9 Sepsis, unspecified organism; E87.6 Hypokalemia; K66.0 Peritoneal adhesions (postprocedural) (postinfection); R50.82 Postprocedural fever; B96.89 Other specified bacterial agents as the cause of diseases classified elsewhere; K59.09 Other constipation; Z23 Encounter for immunization

== ENCOUNTER 2017-10-31 14:01 | Emergency (ER) | payer SELFPAY ==
[2017-10-31 14:08] VITALS: BP 153/103; PULSE 78; RESP 16; TEMP 97.9; O2SAT 100
--- NOTE | 2017-10-31 14:29 | ED PDOC ---
HPI: Abdomen Chief Complaint (Nursing): Abdominal Pain Additional Complaint(s): 37yo M with PMHx appendicitis c/o abd pain x3 days. RLQ abd pain, intermittent, radiation to left flank, sharp/dull at times. Decreased BM frequency x1 month, baseline daily. Last BM today, soft, denies dyschezia/hematochezia/melena. Prior BM 3 days ago, hard, some blood noticed after straining with BM. SHx significant for lap appy 09/15/17 showing acute appendicitis with rajeev appendicitis. CT abd 09/15/17 showing possible ruptured appendix. Last FU surgery Dr. Mccain 10/11/17 with LUCITA drain removed and completed outpt abx course. Denies fever, chills, n/v, chest pain, SOB, diarrhea. No new foods. Not taking any OTC meds. PCP: none Past Medical History Reviewed: Historical Data, Nursing Documentation, Vital Signs Vital Signs: Last Vital Signs Temp 97.9 F 10/31/17 14:04 Pulse 78 10/31/17 14:04 Resp 16 10/31/17 14:04 BP 153/103 H 10/31/17 14:04 Pulse Ox 100 10/31/17 14:31 - Medical History PMH: Denies: Chronic Kidney Disease - Surgical History Surgical History: Appendectomy - Family History Family History: States: Unknown Family Hx - Social History Current smoker - smoking cessation education provided: No Alcohol: None Drugs: Denies - Home Medications Home Medications: Ambulatory Orders Medication Instructions Recorded Ciprofloxacin HCl [Cipro] 500 mg PO Q12 #14 tablet 09/22/17 Metronidazole [Flagyl] 500 mg PO TID #21 tablet 09/22/17 - Allergies Allergies/Adverse Reactions: Allergies Allergy/AdvReac Type Severity Reaction Status Date / Time No Known Allergies Allergy Verified 09/15/17 06:08 Review of Systems ROS Statement: Except As Marked, All Systems Reviewed And Found Negative Gastrointestinal: Positive for: Abdominal Pain Physical Exam - Reviewed Nursing Documentation Reviewed: Yes Vital Signs Reviewed: Yes - Physical Exam Appears: Positive for: Well, Non-toxic Head Exam: Positive for: ATRAUMATIC, NORMAL INSPECTION Skin: Positive for: Warm, Dry Eye Exam: Positive for: Normal appearance. Negative for: Scleral icterus Neck: Positive for: Normal, Painless ROM, Supple Cardiovascular/Chest: Positive for: Regular Rate, Rhythm, Chest Non Tender Respiratory: Positive for: Normal Breath Sounds. Negative for: Decreased Breath Sounds Gastrointestinal/Abdominal: Positive for: Bowel Sounds, Soft, Tenderness (RLQ). Negative for: Mass, Distended, Guarding Back: Positive for: Normal Inspection Extremity: Positive for: Normal ROM. Negative for: Tenderness Lymphatic: Negative for: Adenopathy Neurologic/Psych: Positive for: Alert, Oriented - ECG O2 Sat by Pulse Oximetry: 100 Medical Decision Making Medical Decision Makin DDx consitipation, adhesions XR abd reassessment 1550 no current abd pain, comfortable XR abd pending final read Disposition - Clinical Impression Clinical Impression: Abdominal discomfort - Disposition Referrals: [facility] [Outside] Disposition Time: 15:53 Condition: STABLE Instructions: Constipation, Adult (DC) Forms: [facility] (Albanian), [facility] ED School/Work Excuse Print Language: SLOVENIAN
--- NOTE | 2017-10-31 16:28 | ED PDOC ---
- Laboratory Results Result Diagrams: 10/31/17 16:47 10/31/17 16:47 Interpretation Of Abn Labs: no acute - ECG O2 Sat by Pulse Oximetry: 100 - CT Scan/US ct Other Rad Studies (CT/US): Read By Radiologist Other Rad Interpretation: no acute - Progress ED Course And Treament: 1630: Stable. Took over care from Dr. Ornelas. Fu on Ct and labs. Recent appendix surg. 1823: Stable. Pain free. Fu with pcp. AAOx3. Disposition - Clinical Impression Clinical Impression: Abdominal pain - POA Present On Arrival: None - Disposition Referrals: [facility] [Outside] - 11/01/17 Disposition: Routine/Home Disposition Time: 18:27 Condition: STABLE Additional Instructions: Return if not better in 3 days Instructions: Acute Abdomen (Belly Pain) Forms: [employer] (Faroese), [facility] ED School/Work Excuse Print Language: GABONESE
--- NOTE | 2017-10-31 16:36 | ED PDOC ---
- ECG O2 Sat by Pulse Oximetry: 100 Disposition - Clinical Impression Clinical Impression: Abdominal discomfort - POA Present On Arrival: None - Disposition Referrals: [facility] [Outside] Disposition: Transfer of Care Disposition Time: 16:36 Condition: FAIR Instructions: Constipation, Adult (DC) Forms: [facility] (Kiswahili), [facility] ED School/Work Excuse Print Language: SERBIAN Patient Signed Over To: Rm Hendrix
[2017-10-31 17:00] LABS: ALB/GLOB RATIO 1.2 (1.0-2.1); ALBUMIN 4.4 g/dL (3.5-5.0); ALT/SGPT 33 U/L (21-72); AST/SGOT 25 U/L (17-59); BLOOD UREA NITROGEN 16 mg/dl (9-20); CALCIUM 9.5 mg/dL (8.4-10.2); GFR AFRICAN-AMERICAN > 60; GFR NON-AFRICAN AMERICAN > 60
[2017-10-31 17:12] LABS: BASO % 1.5 % (0.0-2.0); EOS # 0.2 K/uL (0.0-0.7); EOS % 6.8 % (0.0-4.0); HEMOGLOBIN 14.5 g/dL (12.0-18.0); LYMPH # 1.5 K/uL (1.0-4.3); LYMPH % 47.3 % (20.0-40.0); MEAN CELL VOLUME 77.9 fl (80.0-94.0); MEAN CORPUSCULAR HEMOGLOBIN 25.3 pg (27.0-31.0); MEAN CORPUSCULAR HGB CONC 32.5 g/dL (33.0-37.0); MEAN PLATELET VOLUME 8.2 fl (7.2-11.7); MONO # 0.3 K/uL (0.0-0.8); MONO % 9.7 % (0.0-10.0); NEUT # 1.1 K/uL (1.8-7.0); NEUT % 34.7 % (50.0-75.0); NRBC % 0.8 % (0.0-0.0); RBC 5.74 Mil/uL (4.40-5.90); WHITE BLOOD COUNT 3.2 K/uL (4.8-10.8)
[2017-10-31] MEDS ORDERED: Iohexol 300 100 ML IJ ONE (17:12)
--- NOTE | 2017-10-31 17:16 | RAD ---
HISTORY: RLQ abd pain, constipation COMPARISON: September 15, 2017 CT abdomen and pelvis FINDINGS: BOWEL: Normal. No obstruction. No free air. BONES: Normal. OTHER FINDINGS: None. IMPRESSION: No acute findings related to/accounting for the clinical presentation.
--- NOTE | 2017-10-31 18:16 | CT ---
PROCEDURE: CT Abdomen and Pelvis with contrast HISTORY: Abdominal pain. Relevant surgical history: Appendectomy approximately 1 month ago. COMPARISON: 09/15/[address] abdomen and pelvis TECHNIQUE: Contrast dose: 95 cc Omnipaque 300 Radiation dose: Total exam DLP = 445.54 mGy-cm. This CT exam was performed using one or more of the following dose reduction techniques: Automated exposure control, adjustment of the mA and/or kV according to patient size, and/or use of iterative reconstruction technique. FINDINGS: LOWER THORAX: Unremarkable. LIVER: Hepatic steatosis. No gross lesion or ductal dilatation. GALLBLADDER AND BILE DUCTS: Unremarkable. PANCREAS: Unremarkable. No gross lesion or ductal dilatation. SPLEEN: Unremarkable. ADRENALS: Unremarkable. No mass. KIDNEYS AND URETERS: Unremarkable. No hydronephrosis. No solid mass. VASCULATURE: Unremarkable. No aortic aneurysm. BOWEL: Constipation without fecal impaction or obstruction. APPENDIX: Status post appendectomy. Resolution of inflammatory changes in the right lower quadrant identified on the prior study. PERITONEUM: Unremarkable. No free fluid. No free air. LYMPH NODES: Unremarkable. No enlarged lymph nodes. BLADDER: Unremarkable. REPRODUCTIVE: Unremarkable. BONES: No acute fracture. OTHER FINDINGS: None. IMPRESSION: No acute findings related to/accounting for the clinical presentation. Additional benign and/or incidental findings described above.
== END 2017-10-31 18:50 | disposition home or self-care (01) ==
LOC: H.ER 14:01
DX: R10.31 Right lower quadrant pain (principal); K59.00 Constipation, unspecified
CPT/HCPCS: 74018; 74177; 80053; 85025; 99283; Q9967